=== PATIENT | female | born 1980 | race Caucasian/White ===

== ENCOUNTER → 2020-07-11 14:20 | Outpatient (BNVA) | payer OTHER, SELFPAY | PROVIDERS: PCP Physician Assistant; Referring Provider Hospitalist; Visit Provider Surgery | DX: K64.5 Perianal venous thrombosis (principal) | CPT/HCPCS: 46083 ==

== ENCOUNTER 2020-12-07 10:05 | Outpatient (REF) | payer OTHER, SELFPAY ==
--- NOTE | ~2020-12-07 | XR_ITS ---
EXAMINATION: XR FOOT, RIGHT CLINICAL INFORMATION: Pain right toes. COMPARISON: None TECHNIQUE: AP, lateral, and oblique views of the right foot. 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 Suspect hairline fracture lateral base fifth toe middle phalanx. There is subtle depression central head proximal phalanx. Recommend correlation with patient's symptoms and clinical exam to confirm acute injury in this area rather than chronic post traumatic changes. The remainder of the bony structures appear intact. There are no other areas suspicious for fracture and no dislocation or destructive process. XR/XR foot RT min 3V IMPRESSION: Subtle posttraumatic changes fifth toe middle phalanx and head proximal phalanx. Recommend correlation with clinical impression to confirm acute injury.
== END 2020-12-07 10:06 | disposition home or self-care (01) ==
LOC: HO.XRAY 10:05
PROVIDERS: PCP Physician Assistant; Visit Provider Hospitalist
DX: M79.674 Pain in right toe(s) (principal)
CPT/HCPCS: 73630

== ENCOUNTER → 2021-02-07 08:26 | Outpatient (BNVA) | payer OTHER, SELFPAY | PROVIDERS: PCP Physician Assistant; Referring Provider Physician Assistant; Visit Provider Nurse Practitioner Family ==

== ENCOUNTER 2021-03-20 10:29 | Outpatient (REF) | payer OTHER, SELFPAY ==
[2021-03-20 12:42] LABS: Hematocrit 35.4 % (37-47); Hemoglobin 11.8 g/dl (12.0-16.0); Mean Corpuscular HGB Conc 33.3 g/dl (31.0-35.0); Mean Corpuscular Hemoglobin 29.4 pg (27.0-33.0); Mean Corpuscular Volume 88.3 fL (80-98); Platelet Count 244 X10*3/uL (160-400); Red Blood Count 4.01 X10*6/uL (4.20-5.50); Red Cell Distribution Width 12.5 % (11.0-16.0); White Blood Count 4.3 X10*3/uL (4.8-10.8)
[2021-03-20 12:52] LABS: Estimated Average Glucose 94 mg/dL; Hemoglobin A1c % 4.9 %
[2021-03-20 13:08] LABS: Alanine Aminotransferase 12 U/L (0-31); Albumin Level 4.2 g/dL (3.5-5.0); Alkaline Phosphatase 54 U/L (39-117); Anion Gap 13 (12-20); Aspartate Amino Transferase 15 U/L (5-31); Bilirubin Total 0.8 mg/dL (0.0-1.0); Blood Urea Nitrogen 8 mg/dL (9-16); Calcium 9.2 mg/dL (8.4-10.2); Carbon Dioxide 26 mmol/L (22-29); Chloride 105 mmol/L (96-108); Cholesterol 197 mg/dL; Estimated Glomerular Filt Rate > 60; Glucose Fasting 81 mg/dL (60-99); HDL Cholesterol 53 mg/dL; LDL Cholesterol Calculated 134 mg/dl; Potassium 3.6 mmol/L (3.3-5.1); Sodium 140 mmol/L (135-145); Total Protein 6.9 g/dL (6.5-8.0); Triglycerides 51 mg/dL
[2021-03-20 13:16] LABS: TSH reflex Free T4 0.44 uIU/mL (0.32-4.0)
== END 2021-03-20 10:30 | disposition home or self-care (01) ==
LOC: HO.10HDL 10:29
PROVIDERS: Visit Provider Physician Assistant
DX: I10 Essential (primary) hypertension (principal); I83.90 Asymptomatic varicose veins of unspecified lower extremity; Z13.220 Encounter for screening for lipoid disorders; Z13.1 Encounter for screening for diabetes mellitus
CPT/HCPCS: 36415; 80053; 80061; 83036; 84443; 85027

== ENCOUNTER → 2021-03-26 11:12 | Outpatient (BNVA) | payer OTHER, SELFPAY | PROVIDERS: Referring Provider Physician Assistant; Visit Provider Nurse Practitioner Family | DX: K58.9 Irritable bowel syndrome, unspecified (principal); K59.04 Chronic idiopathic constipation | CPT/HCPCS: 99212 ==

== ENCOUNTER → 2021-05-11 11:18 | Outpatient (BNVA) | payer OTHER, SELFPAY | PROVIDERS: PCP Physician Assistant; Visit Provider Nurse Practitioner Family | DX: K59.04 Chronic idiopathic constipation (principal); K58.1 Irritable bowel syndrome with constipation | CPT/HCPCS: 99212 ==

== ENCOUNTER 2021-05-11 12:15 | Outpatient (REF) | payer OTHER, SELFPAY ==
[2021-05-14 16:36] LABS: Transglutaminase Ab IgG 1 U/mL; Transglutaminase IgA 1 U/mL
== END 2021-05-11 12:16 | disposition home or self-care (01) ==
LOC: HO.10HDL 12:15
PROVIDERS: Visit Provider Nurse Practitioner Family
DX: R10.11 Right upper quadrant pain (principal); R14.0 Abdominal distension (gaseous)
CPT/HCPCS: 36415; 83516

== ENCOUNTER → 2021-05-15 11:29 | Outpatient (BNVA) | payer OTHER, SELFPAY | PROVIDERS: PCP Physician Assistant; Visit Provider Surgery Vascular Surgery | DX: I83.12 Varicose veins of left lower extremity with inflammation (principal) | CPT/HCPCS: 99202 ==

== ENCOUNTER 2021-05-31 10:27 | Outpatient (REF) | payer OTHER, SELFPAY ==
--- NOTE | ~2021-05-31 | US_ITS ---
EXAMINATION: US LOWER EXTREMITY VENOUS ULTRASOUND (REFLUX EXAM), BILATERAL CLINICAL INDICATION: Bilateral lower extremity varicose veins with insufficiency. COMPARISON: None. TECHNIQUE: Color-flow triplex imaging and compression Doppler was performed to evaluate both the deep and the superficial systems bilaterally. To evaluate the superficial system, the examination was performed in the upright position. Color-flow Doppler ultrasound and compression ultrasound were utilized. In addition, maneuvers were utilized to demonstrate reflux. FINDINGS: 1. DEEP VENOUS ULTRASOUND OF THE RIGHT LOWER EXTREMITY: Common Femoral Vein: Compressible, normal respiratory variation and augmented flow. Femoral Vein: Compressible, normal color-flow and augmentation. Popliteal Vein: Compressible, normal augmentation. Deep Reflux: There is insufficiency involving the mid femoral vein and popliteal vein measuring up to 2.8 seconds. There is no evidence of a Barrios's cyst. 2. SUPERFICIAL ULTRASOUND WITH DOPPLER OF RIGHT LOWER EXTREMITY: GREAT SAPHENOUS VEIN: The saphenous vein ranges in size from 0.3 cm at the ankle to 0.7 cm at the junction. There is segmental reflux at the ankle which measures greater than 3.4 seconds. DUPLICATED GREAT SAPHENOUS VEIN: Lateral: 0.5 cm at the junction, no reflux. SMALL SAPHENOUS VEIN: Saphenopopliteal junction: 0.7 cm; No evidence of reflux. Mid calf: 0.7 cm; greater than 3.3 seconds of reflux. Distal calf: 0.3 cm; greater than 3.5 seconds of reflux. VEIN OF GIACOMINI: None imaged. PERFORATORS: None imaged. VARICOSITIES: Midcalf: 0.2 cm, greater than 3 seconds of reflux. 3. DEEP VENOUS ULTRASOUND OF THE LEFT LOWER EXTREMITY: Common Femoral Vein: Compressible, normal respiratory variation and augmented flow. Femoral Vein: Compressible, normal color-flow and augmentation. Popliteal Vein: Compressible, normal augmentation. Deep Reflux: There is no evidence of reflux in the deep system in either the common femoral vein or the popliteal vein. There is no evidence of a Barrios's cyst. 4. SUPERFICIAL ULTRASOUND WITH DOPPLER OF LEFT LOWER EXTREMITY: GREAT SAPHENOUS VEIN: Saphenofemoral junction: 0.6 cm; Reflux: 2.7 seconds. Proximal thigh: 0.6 cm; Reflux: 3.2 seconds. Mid thigh: 0.5 cm; Reflux: 3.3 seconds. Above knee: 0.5 cm; Reflux: 3.0 seconds. At knee: 0.4 cm; Reflux: 3.4 seconds. Below knee: 0.5 cm; Reflux: 1.9 seconds. Mid calf: 0.2 cm; Reflux: No evidence of reflux. Ankle: 0.3 cm; Reflux: No evidence of reflux. DUPLICATED GREAT SAPHENOUS VEIN: Lateral: 0.4 cm, no reflux. SMALL SAPHENOUS VEIN: Saphenopopliteal junction: 0.6 cm; No evidence of reflux. Mid calf: 0.2 cm; No evidence of reflux. Distal calf: 0.2 cm; No evidence of reflux. VEIN OF GIACOMINI: None imaged. PERFORATORS: None imaged. VARICOSITIES: Distal thigh: 0.4 cm, greater than 3 seconds of reflux. Proximal calf: 0.4 cm, greater than 1.4 seconds of reflux. US/US venous duplex LE BI IMPRESSION: 1. Left great saphenous venous insufficiency beginning at the saphenofemoral junction. 2. Segmental reflux involving the right great saphenous vein at the ankle. 3. Right small saphenous venous insufficiency at the mid and distal calf. 4. Bilateral refluxing varicosities. 5. Deep venous insufficiency involving the right mid femoral vein and popliteal vein. 6. No evidence of DVT.
== END 2021-05-31 10:28 | disposition home or self-care (01) ==
LOC: HO.US 10:27
PROVIDERS: PCP Physician Assistant; Visit Provider Surgery Vascular Surgery
DX: I83.893 Varicose veins of bilateral lower extremities with other complications (principal)
CPT/HCPCS: 93970

== ENCOUNTER → 2021-06-28 09:44 | Outpatient (BNVA) | payer OTHER, SELFPAY | PROVIDERS: PCP Physician Assistant; Visit Provider Surgery Vascular Surgery | DX: I83.12 Varicose veins of left lower extremity with inflammation (principal); F41.9 Anxiety disorder, unspecified; Z88.8 Allergy status to other drugs, medicaments and biological substances; Z91.030 Bee allergy status | CPT/HCPCS: 99212 ==

== ENCOUNTER → 2021-06-29 10:25 | Outpatient (BNVA) | payer OTHER, SELFPAY | PROVIDERS: PCP Physician Assistant; Referring Provider Physician Assistant; Visit Provider Surgery Vascular Surgery | DX: I83.12 Varicose veins of left lower extremity with inflammation (principal) | CPT/HCPCS: 36482 ==

== ENCOUNTER 2021-07-02 14:03 | Outpatient (REF) | payer OTHER, SELFPAY ==
--- NOTE | ~2021-07-02 | US_ITS ---
EXAMINATION: US VENOUS ULTRASOUND WITH DOPPLER LOWER EXTREMITY, LEFT CLINICAL INFORMATION: Pain and swelling status post left Venaseal. COMPARISON: 05/31/2021 TECHNIQUE: Ultrasound of the deep veins is performed from the hip to the calf with compression sonography and color and pulse Doppler assessment. Spectral analysis with color-flow imaging is performed. FINDINGS: There is normal venous compression and respiratory variation and augmented flow. The visualized common femoral vein, superficial femoral vein, profunda femoral vein, popliteal vein, and the trifurcation region shows no evidence of deep venous thrombosis. There is no significant popliteal fossa cyst. Posttreatment changes of the greater saphenous vein with closure approximately 12 cm from the junction with the femoral vein. If the patient's symptoms persist, followup ultrasound in 5 days 7 days might be of value to exclude proximal propagation from a non-visualized calf vein. US/US venous duplex LE IMPRESSION: No DVT demonstrated in the left lower extremity.
== END 2021-07-02 14:04 | disposition home or self-care (01) ==
LOC: HO.HMGCX 14:03
PROVIDERS: PCP Physician Assistant; Visit Provider Surgery Vascular Surgery
DX: M79.605 Pain in left leg (principal)
CPT/HCPCS: 93971

== ENCOUNTER → 2021-07-10 09:31 | Outpatient (BNVA) | payer OTHER, SELFPAY | PROVIDERS: PCP Physician Assistant; Visit Provider Surgery Vascular Surgery | DX: I83.12 Varicose veins of left lower extremity with inflammation (principal) | CPT/HCPCS: 99212 ==

== ENCOUNTER → 2021-08-17 10:57 | Outpatient (BNVA) | payer OTHER, SELFPAY | PROVIDERS: PCP Physician Assistant; Referring Provider Physician Assistant; Visit Provider Nurse Practitioner Family | DX: K59.04 Chronic idiopathic constipation (principal); R14.0 Abdominal distension (gaseous); R10.11 Right upper quadrant pain | CPT/HCPCS: 99212 ==

== ENCOUNTER 2021-08-17 12:19 | Outpatient (REF) | payer OTHER, SELFPAY ==
[2021-08-17 13:54] LABS: Hematocrit 33.5 % (37.0-47.0); Hemoglobin 11.1 g/dl (12.0-16.0); Mean Corpuscular HGB Conc 33.1 g/dl (31.0-35.0); Mean Corpuscular Hemoglobin 28.9 pg (27.0-33.0); Mean Corpuscular Volume 87.2 fL (80.0-98.0); Mean Platelet Volume 10.5 fL (9.4-12.3); Platelet Count 227 X10*3/uL (160-400); Red Blood Count 3.84 X10*6/uL (4.20-5.50); White Blood Count 5.1 X10*3/uL (4.8-10.8)
[2021-08-17 14:16] LABS: Anion Gap 10 (12-20); Blood Urea Nitrogen 9 mg/dL (9-16); Calcium 9.1 mg/dL (8.4-10.2); Carbon Dioxide 27 mmol/L (22-29); Chloride 108 mmol/L (96-108); Estimated Glomerular Filt Rate > 60; Glucose Random 93 mg/dL (60-115); Potassium 3.8 mmol/L (3.3-5.1); Sodium 141 mmol/L (135-145)
[2021-08-17 14:55] LABS: Folate 13.1 ng/mL (> or = 4.0); Vitamin B12 345 pg/mL (200-900)
[2021-08-22 14:15] LABS: Vitamin D 25-OH, D2 <4 ng/mL; Vitamin D 25-OH, D3 27 ng/mL; Vitamin D 25-OH, Total 27 ng/mL (30-100)
== END 2021-08-17 12:20 | disposition home or self-care (01) ==
LOC: HO.10HDL 12:19
PROVIDERS: Visit Provider Nurse Practitioner Family
DX: Z12.11 Encounter for screening for malignant neoplasm of colon (principal); R10.11 Right upper quadrant pain; E55.9 Vitamin D deficiency, unspecified; R14.0 Abdominal distension (gaseous); R19.7 Diarrhea, unspecified
CPT/HCPCS: 36415; 80048; 82306; 82607; 82746; 84443; 85027

== ENCOUNTER 2021-08-22 08:40 | Outpatient (REF) | payer OTHER, SELFPAY ==
--- NOTE | ~2021-08-22 | US_ITS ---
EXAMINATION: US ABDOMEN LIMITED CLINICAL INFORMATION: Right upper quadrant pain. COMPARISON: Ultrasound abdomen 12/16/2016. TECHNIQUE: Real-time imaging of the right upper quadrant abdominal viscera. FINDINGS: PANCREAS: Normal. LIVER: The liver is normal in size. The liver contour is normal. The liver echotexture is normal.. No focal hepatic lesion. There is no intrahepatic biliary duct dilatation seen. GALLBLADDER: Normal. The gallbladder is physiologically distended without evidence of stones, sludge, polyps, wall thickening or pericholecystic fluid. COMMON BILE DUCT: Normal in caliber measuring 0.2 cm in diameter. RIGHT KIDNEY: There is a 5 mm echogenic density in the lower pole suggestive of a stone. No hydronephrosis or focal parenchymal lesions. The kidney measures 11.1 cm in maximum dimension. FREE FLUID: None. US/US abdomen limited IMPRESSION: Probable right renal stone. Otherwise unremarkable exam.
== END 2021-08-22 08:41 | disposition home or self-care (01) ==
LOC: HO.US 08:40
PROVIDERS: PCP Physician Assistant; Visit Provider Physician Assistant
DX: R10.11 Right upper quadrant pain (principal)
CPT/HCPCS: 76705

== ENCOUNTER 2021-09-14 10:25 | Outpatient (REF) | payer OTHER, SELFPAY ==
--- NOTE | ~2021-09-14 | CT_ITS ---
EXAMINATION: CT ABDOMEN AND PELVIS WITH CONTRAST CLINICAL INFORMATION: Unspecified abdominal pain. COMPARISON: None TECHNIQUE: Multidetector volumetric images were obtained from the superior aspect of the liver through the pubic symphysis following administration 85 mL of Omnipaque 350 intravenous contrast. Sagittal and coronal reformatted images were obtained on the technologist's workstation. Oral contrast: No This CT examination was performed using dose optimization techniques as appropriate, variously including the following: *Automated exposure control *Adjustment of mA and/or kV according to patient size (this includes techniques or standardized protocols for targeted exams where dose is matched to indication/reason for exam; i.e. extremities or head) *Use of iterative reconstruction technique DLP: 435 mGy-cm FINDINGS: LUNG BASES: The lungs are well-expanded and clear. The heart size is normal. LIVER, GALLBLADDER, AND BILIARY TREE: The liver is normal in size, shape, and attenuation. There are multiple hypodense liver lesions the largest measuring 7 mm right hepatic lobe segment 7. And 7 mm segment 7/8. There is no intrahepatic ductal dilatation. The gallbladder is unremarkable with no evidence of radiopaque gallstones, gallbladder wall thickening, or obvious pericholecystic inflammatory changes. PANCREAS: Unremarkable. SPLEEN: Unremarkable. ADRENAL GLANDS: Unremarkable. KIDNEYS AND URETERS: The kidneys are normal in size, shape, and attenuation. No hydronephrosis, hydroureter, or calculi seen. No perinephric stranding. There are subtle hypodense lesions in the midpole and lower pole right kidney suspicious for small cysts. BLADDER: Unremarkable. GASTROINTESTINAL TRACT: There is moderate stool and gas seen throughout the colon without any significant distention. Oral contrast opacified small bowel loops are unremarkable. There is no free air or free fluid. ABDOMINAL WALL: No significant hernia is appreciated. LYMPH NODES: Normal. VASCULAR: Unremarkable. PELVIC VISCERA: The uterus is anteverted and unremarkable. There is a bilobed right adnexal cyst measuring 2.7 x 1.7 cm. There are scattered phleboliths in the pelvis. No abnormal pelvic or inguinal lymph nodes seen. OSSEOUS STRUCTURES: Unremarkable. CT/CT abdomen pelvis w con IMPRESSION: Moderate constipation. No acute process seen. Multiple small liver hypodensities question small cysts. Bilobed right adnexal cyst. Fleischner guidelines were followed.
[2021-09-14] MEDS: iohexoL 350 MG/ML 100 ML INFUS..BTL 85 ML IV (13:26)
[2021-09-14] MEDS: Barium Sulfate Oral (Mocha) 450 ML ORAL.SUSP 900 ML PO (13:27)
== END 2021-09-14 10:26 | disposition home or self-care (01) ==
LOC: HO.CT 10:25
PROVIDERS: PCP Physician Assistant; Visit Provider Nurse Practitioner Family
DX: R10.9 Unspecified abdominal pain (principal)
CPT/HCPCS: 74177; Q9967

== ENCOUNTER → 2021-09-26 10:28 | Outpatient (BNVA) | payer OTHER, SELFPAY | PROVIDERS: PCP Physician Assistant; Referring Provider Physician Assistant; Visit Provider Nurse Practitioner Family | DX: K59.04 Chronic idiopathic constipation (principal); R10.11 Right upper quadrant pain | CPT/HCPCS: 99212 ==

== ENCOUNTER 2021-10-18 08:53 | Outpatient (REF) | payer OTHER, SELFPAY ==
--- NOTE | ~2021-10-18 | MR_ITS ---
EXAMINATION: MR ABDOMEN WITHOUT AND WITH CONTRAST CLINICAL INFORMATION: Right upper quadrant pain. Multiple hypodense liver lesion seen on prior abdomen CT. COMPARISON: CT abdomen from 09/14/2021. Abdomen ultrasound from 08/22/2021. TECHNIQUE: MR abdomen was performed without and with use of 7.5 mL intravenous Gadavist. Postcontrast images are performed in multiphase dynamic sequences. Imaging was performed in 3 planes. FINDINGS: LUNG BASES: Normal. No pulmonary consolidation or pleural effusion at either lung base. LIVER: Liver has normal size, contour and parenchymal signal. No cirrhotic morphology or steatosis. Several small cysts are present within the liver, with two largest measuring up to 1 cm and 1.1 cm maximum dimension and exhibiting faintly visible thin internal septation. There are no suspicious liver lesions that require follow-up. No evidence of hepatic hemangioma or solid mass. GALLBLADDER AND BILIARY TREE: Gallbladder has normal wall thickness. No evidence of cholelithiasis or pericholecystic fluid. No dilated bile ducts. PANCREAS: Normal. No edema, pancreatic ductal dilatation or mass. SPLEEN: Normal. ADRENAL GLANDS: Normal. KIDNEYS: Kidneys are normal in size and enhance symmetrically. Small, 0.8 cm simple cyst in the interpolar region right kidney. No imaging follow-up recommended. No solid renal mass, hydronephrosis or perinephric edema. BOWEL AND PERITONEUM: Stomach is unremarkable. No dilated loops of bowel. No bowel wall thickening or mesenteric fat stranding. No ascites. VASCULATURE: Abdominal aorta is normal in size and its branches are widely patent. Inferior vena cava is normal. Splenic, mesenteric and portal veins are normal. LYMPH NODES: No pathologic sized lymph nodes in the abdomen. SKELETAL: Unremarkable. MR/MR abdomen wo/w con IMPRESSION: Several small, benign cysts are present in the liver, largest measuring up to 1.1 cm maximum dimension. No suspicious liver lesion. Otherwise, the hepatobiliary structures are unremarkable.
== END 2021-10-18 08:54 | disposition home or self-care (01) ==
LOC: HO.MRI 08:53
PROVIDERS: Visit Provider Nurse Practitioner Family
DX: R10.11 Right upper quadrant pain (principal)
CPT/HCPCS: 74183; A9585

== ENCOUNTER → 2022-02-19 15:50 | Outpatient (BNVA) | payer OTHER, SELFPAY | PROVIDERS: PCP Physician Assistant; Visit Provider Nurse Practitioner Family | DX: K58.1 Irritable bowel syndrome with constipation (principal); K59.04 Chronic idiopathic constipation; K64.9 Unspecified hemorrhoids | CPT/HCPCS: 99212 ==

== ENCOUNTER 2022-03-13 11:01 | Outpatient (REF) | payer OTHER, SELFPAY ==
--- NOTE | ~2022-03-13 | XR_ITS ---
EXAMINATION: XR SHOULDER, LEFT CLINICAL INFORMATION: Muscle spasm COMPARISON: None TECHNIQUE: AP external rotation, Grashey, scapular Y, and axillary views of the left shoulder. FINDINGS: The bones and soft tissues are normal. No fracture. Glenohumeral and acromioclavicular alignment is anatomic with normal joint space. No abnormal soft tissue calcifications. XR/XR shoulder LT min 2V IMPRESSION: Normal left shoulder.
== END 2022-03-13 11:02 | disposition home or self-care (01) ==
LOC: HO.HMGCX 11:01
PROVIDERS: PCP Physician Assistant; Visit Provider Physician Assistant
DX: M62.838 Other muscle spasm (principal)
CPT/HCPCS: 73030

== ENCOUNTER → 2022-03-19 10:37 | Outpatient (BNVA) | payer OTHER, SELFPAY | PROVIDERS: PCP Physician Assistant; Visit Provider Surgery Vascular Surgery | DX: I83.12 Varicose veins of left lower extremity with inflammation (principal) | CPT/HCPCS: 99212 ==

== ENCOUNTER 2022-05-22 10:03 | Outpatient (REF) | payer OTHER, SELFPAY ==
--- NOTE | ~2022-05-22 | US_ITS ---
EXAMINATION: US LOWER EXTREMITY VENOUS (REFLUX EXAM), BILATERAL CLINICAL INDICATION: Chronic venous insufficiency with lower extremity varicose veins. History of prior ablation of the left great saphenous vein COMPARISON: 05/31/2021 TECHNIQUE: Color flow triplex imaging and compression Doppler was performed to evaluate both the deep and the superficial systems bilaterally. To evaluate the superficial system, the examination was performed in the upright position. Color-flow Doppler ultrasound and compression ultrasound were utilized. In addition, maneuvers were utilized to demonstrate reflux. FINDINGS: 1. DEEP VENOUS ULTRASOUND OF THE RIGHT LOWER EXTREMITY: Common Femoral Vein: Compressible, normal respiratory variation and augmented flow. Femoral Vein: Compressible, normal color flow and augmentation. Popliteal Vein: Compressible, normal augmentation. Deep Reflux: There is mild deep venous reflux in the superficial femoral vein and popliteal vein There is no evidence of a Barrios's cyst. 2. SUPERFICIAL ULTRASOUND WITH DOPPLER OF RIGHT LOWER EXTREMITY: GREAT SAPHENOUS VEIN: Saphenofemoral Junction: 0.7 cm; Reflux: 0 ms Proximal Thigh: 0.3 cm; Reflux: 0 ms Mid Thigh: 0.3 cm; Reflux: 0 ms Above Knee: 0.3 cm; Reflux: 0 ms At Knee: 0.3 cm; Reflux: 0 ms Below Knee: 0.3 cm; Reflux: 0 ms Mid Calf: 0.2 cm; Reflux: 0 ms Ankle: 0.3 cm; Reflux: 0 ms DUPLICATED MEDIAL GREAT SAPHENOUS VEIN: Diameter: 0.5 cm Reflux: None DUPLICATED LATERAL GREAT SAPHENOUS VEIN: Diameter: None Imaged Reflux: NA SMALL SAPHENOUS VEIN: Proximal: 0.5 cm; Reflux: 0 ms Distal: 0.5 cm; Reflux: 2976 ms VEIN OF GIACOMINI: None Imaged. PERFORATORS: Location: None Imaged Size: NA Reflux: NA VARICOSITIES: Location: None Imaged Size: NA Reflux: NA 3. DEEP VENOUS ULTRASOUND OF THE LEFT LOWER EXTREMITY: Common Femoral Vein: Compressible, normal respiratory variation and augmented flow. Femoral Vein: Compressible, normal color flow and augmentation. Popliteal Vein: Compressible, normal augmentation. Deep Reflux: There is mild reflux seen in the left popliteal vein There is no evidence of a Barrios's cyst. 4. SUPERFICIAL ULTRASOUND WITH DOPPLER OF LEFT LOWER EXTREMITY: GREAT SAPHENOUS VEIN: Saphenofemoral Junction: 1.1 cm; Reflux: 0 ms Proximal Thigh: 0.3 cm; Reflux: 2496 ms, partially recanalized Mid Thigh: Occluded/not visualized cm; Reflux: 0 ms Above Knee: 0.3 cm; Reflux: 0 ms At Knee: 0.4 cm; Reflux: 3080 ms Below Knee: 0.4 cm; Reflux: 2200 ms Mid Calf: 0.2 cm; Reflux: 0 ms Ankle: 0.3 cm; Reflux: 0 ms DUPLICATED MEDIAL GREAT SAPHENOUS VEIN: Diameter: None Imaged Reflux: NA DUPLICATED LATERAL GREAT SAPHENOUS VEIN: Diameter: None Imaged Reflux: NA SMALL SAPHENOUS VEIN: Proximal: 0.8 cm; Reflux: 0 ms Distal: 0.3 cm; Reflux: 2560 ms VEIN OF GIACOMINI: None Imaged. PERFORATORS: Location: Distal calf Size: 0.3 cm Reflux: None VARICOSITIES: Location: Proximal thigh arising from the great saphenous vein remnant which is subsequently extending into the above knee great saphenous vein Size: 0.3 cm Reflux: Greater than 3192 US/US venous duplex LE BI IMPRESSION: Right: No significant reflux in the right great saphenous vein. There is severe reflux in the right small saphenous vein. Mild deep venous reflux in the right lower extremity Left: Status post ablation with closure of the left great saphenous vein through the mid thigh. There is partial recanalization of the proximal thigh great saphenous vein with associated varicose vein with severe reflux. Remnant great saphenous vein in the knee and calf also demonstrate severe reflux. Focal reflux in the left small saphenous vein in the distal calf
== END 2022-05-22 10:04 | disposition home or self-care (01) ==
LOC: HO.US 10:03
PROVIDERS: Visit Provider Surgery Vascular Surgery
DX: I83.12 Varicose veins of left lower extremity with inflammation (principal)
CPT/HCPCS: 93970

== ENCOUNTER → 2022-07-04 10:05 | Outpatient (BNVA) | payer OTHER, SELFPAY | PROVIDERS: PCP Physician Assistant; Visit Provider Surgery Vascular Surgery | DX: I83.11 Varicose veins of right lower extremity with inflammation (principal); I83.12 Varicose veins of left lower extremity with inflammation | CPT/HCPCS: 99212 ==

== ENCOUNTER → 2022-08-02 08:24 | Outpatient (BNVA) | payer OTHER, SELFPAY | PROVIDERS: PCP Physician Assistant; Visit Provider Surgery Vascular Surgery | DX: M79.604 Pain in right leg (principal) | CPT/HCPCS: 36475 ==

== ENCOUNTER 2022-08-06 15:08 | Outpatient (REF) | payer OTHER, SELFPAY ==
--- NOTE | ~2022-08-06 | US_ITS ---
EXAMINATION: US VENOUS ULTRASOUND WITH DOPPLER LOWER EXTREMITY, RIGHT CLINICAL INFORMATION: Right leg pain. COMPARISON: None TECHNIQUE: Ultrasound of the deep veins is performed from the hip to the calf with compression sonography and color and pulse Doppler assessment. Spectral analysis with color-flow imaging is performed. FINDINGS: There is normal venous compression and respiratory variation and augmented flow. The visualized common femoral vein, superficial femoral vein, profunda femoral vein, popliteal vein, and the trifurcation region shows no evidence of deep venous thrombosis. Positive superficial thrombus is seen in the small saphenous vein mid and distal segments. No right popliteal cyst. The subcutaneous soft tissues are unremarkable. US/US venous duplex LE RT IMPRESSION: No evidence for deep venous thrombosis in the visualized veins of the right lower extremity. Positive superficial thrombus is seen in the small saphenous vein mid and distal segments.
== END 2022-08-06 15:09 | disposition home or self-care (01) ==
LOC: HO.US 15:08
PROVIDERS: Visit Provider Surgery Vascular Surgery
DX: M79.604 Pain in right leg (principal)
CPT/HCPCS: 93971

== ENCOUNTER → 2022-08-12 11:25 | Outpatient (BNVA) | payer OTHER, SELFPAY | PROVIDERS: PCP Physician Assistant; Visit Provider Nurse Practitioner Family | DX: K59.04 Chronic idiopathic constipation (principal); R10.10 Upper abdominal pain, unspecified; R11.0 Nausea | CPT/HCPCS: 99212 ==

== ENCOUNTER → 2022-09-05 08:59 | Outpatient (BNVA) | payer OTHER, SELFPAY | PROVIDERS: PCP Physician Assistant; Visit Provider Surgery Vascular Surgery | DX: I83.12 Varicose veins of left lower extremity with inflammation (principal) | CPT/HCPCS: 99212 ==

== ENCOUNTER → 2023-01-10 11:03 | Outpatient (BNVA) | payer OTHER, SELFPAY | PROVIDERS: PCP Physician Assistant; Visit Provider Nurse Practitioner Family | DX: K59.04 Chronic idiopathic constipation (principal); R14.0 Abdominal distension (gaseous) | CPT/HCPCS: 99212 ==

== ENCOUNTER 2023-04-15 14:40 | Outpatient (AMB) | payer OTHER, SELFPAY ==
--- NOTE | 2023-04-15 15:45 | MHC.OFFWIV ---
Intake Vital Signs 04/15/23 15:46 Weight 170 lb BP 124/80 Blood Pressure Location Rt brachial Position Sitting Pulse 60 Pulse Source Pulse Oximeter Pulse Oximetry (%) 99 Oxygen Delivery Method Room Air Intake Visit Reasons: EP ?broken left middle finger (lobby) Intake Note: Patient here because she injured her middle finger while playing basketball yesterday. Finger is bruised and pain will radiate up to the elbow. Patient Tobacco Use Status: Never used Tobacco Allergies hydroxyzine [HYDROXYZINE] Allergy (Unknown, Verified 04/15/23 16:00) HIVES trazodone Adverse Reaction (Intermediate, Verified 04/15/23 16:00) Hallucinations bees Allergy (Unknown, Uncoded 04/15/23 16:00) cellulitis of large surrounding area Medication List - Last Reconciled 04/15/23 by Shiv Jara MD cholecalciferol (vitamin D3) 50 mcg PO DAILY clonazepam 2 mg (2 x 1 mg) PO DAILY PRN 15 days clonazepam 2 mg PO DAILY PRN 30 days docusate sodium 200 mg (2 x 100 mg) PO BEDTIME linaclotide (Linzess) 290 mcg PO QAM quetiapine 25 mg PO BEDTIME sennosides (Natural Senna Laxative) 17.2 mg (2 x 8.6 mg) PO BEDTIME topiramate (Topamax) 50 mg PO BEDTIME 90 days Do you need a note to return to daycare/school/sports/work: No HPI EP ?broken left middle finger (lobby) HPI Details 42-year-old female presents to the office for a sick visit. Patient was playing basketball yesterday when she jammed her finger. The middle finger of the left hand is swollen. [facility] Medical History Anxiety Chronic idiopathic constipation Insomnia Surgical History History of section History of tubal ligation History of wisdom tooth extraction Family History Father No problems noted. Mother No problems noted. Daughter Mental health disorder Son Mental health disorder Social History Housing: House Alcohol intake: current Alcohol intake frequency: holidays/special occasions only Patient Tobacco Use Status: Never used Tobacco e-Cigarette/Vaping Use: Never Used Second Hand Smoke Exposure: No service: No Current occupational status: employed Current occupation: [employer] Cognitive needs: No Hearing needs: No Vision needs: No Physical Exam Vital Signs: Last Vital Signs Pulse 60 04/15/23 15:46 BP 124/80 04/15/23 15:46 Pulse Ox 99 04/15/23 15:46 Oxygen Delivery Method Room Air 04/15/23 15:46 Extrem Other: Left hand: Middle finger: Swollen and bruised. Partial flexion possible. Tender to palpate over the proximal interphalangeal joint. Assessment & Plan Assessment & Plan (1) Contusion of finger of left hand: Code(s): S60.00XA - Contusion of unspecified finger without damage to nail, initial encounter Plan: X-rays of the hand ordered. It was reviewed by me personally. No fractures seen. Anti-inflammatory ordered. Orders: Orders XR hand LT min 3V Today S60.00XA - Contusion of unspecified finger without damage to nail, initial encounter Coding Level of Care Code Est Pt Level 4 (67499) Diagnoses Contusion of finger of left hand S60.00XA
[2023-04-15 15:46] VITALS: BP 124/80; PULSE 60; O2SAT 99
== END 2023-04-15 16:27 | disposition home or self-care (01) ==
PROVIDERS: PCP Physician Assistant; Visit Provider Internal Medicine
DX: S60.00XA Contusion of unspecified finger without damage to nail, initial encounter (principal)
CPT/HCPCS: 99214

== ENCOUNTER 2023-04-15 15:59 | Outpatient (REF) | payer OTHER, SELFPAY ==
--- NOTE | ~2023-04-15 | XR_ITS ---
EXAMINATION: XR HAND, LEFT CLINICAL INFORMATION: Contusion/finger contusion COMPARISON: None available. TECHNIQUE: PA, lateral, and oblique views of the left hand. FINDINGS: Arrow points to the third digit. No fracture or dislocation. No significant joint space narrowings or erosions. Third DIP soft tissues are mildly prominent. No abnormal air collections or foreign bodies. XR/XR hand LT min 3V IMPRESSION: Third digit soft tissue prominence without acute bony pathology.
== END 2023-04-15 16:00 | disposition home or self-care (01) ==
LOC: HO.HMGCX 15:59
PROVIDERS: PCP Physician Assistant; Visit Provider Internal Medicine
DX: S60.00XA Contusion of unspecified finger without damage to nail, initial encounter (principal)
CPT/HCPCS: 73130

== ENCOUNTER 2023-08-07 15:03 | Outpatient (AMB) | payer OTHER, SELFPAY ==
[2023-08-07 15:06] VITALS: BMI 30.1
--- NOTE | 2023-08-07 15:06 | MHC.OFFVIS ---
Intake Vital Signs 08/07/23 15:06 Height 5 ft 3 in Weight 170 lb BMI 30.1 Intake Visit Reasons: Left leg has been bothering me Intake Note: Follow up Left LE pain s/p Left GSV Venaseal 06/29/2021 and Right SSV RFA 08/02/2022. Was ue to be scheduled for Left SSV RFA last year. Has US that was done 05/22/22. Also has bulging VV where incision for Left GSV Venaseal was done. Accompanied by: Self / Same As Patient Allergies hydroxyzine [HYDROXYZINE] Allergy (Unknown, Verified 08/07/23 15:10) HIVES trazodone Adverse Reaction (Intermediate, Verified 08/07/23 15:10) Hallucinations bees Allergy (Unknown, Uncoded 08/07/23 15:10) cellulitis of large surrounding area HPI Left leg has been bothering me HPI Details Pleasant 42-year-old female presents for follow-up regarding venous disease. She had undergone previous right lower extremity intervention by us. She has continued swelling and discomfort of the left leg. She actually underwent left great saphenous vein ablation on 06/29/2021. She continues to have swelling and discomfort in particular the calf region. He now presents to us for follow-up with venous insufficiency testing dated 05/22/2022 [facility] Medical History Chronic idiopathic constipation Anxiety Insomnia Surgical History History of section History of wisdom tooth extraction History of tubal ligation Family History Father No problems noted. Mother No problems noted. Daughter Mental health disorder Son Mental health disorder Social History Housing: House Alcohol intake: current Alcohol intake frequency: holidays/special occasions only Patient Tobacco Use Status: Never used Tobacco e-Cigarette/Vaping Use: Never Used Second Hand Smoke Exposure: No service: No Current occupational status: employed Current occupation: [employer] Cognitive needs: No Hearing needs: No Vision needs: No Review of Systems Const Reports as per HPI ENT Reports no additional complaints Card Denies chest pain, Denies chest pain at rest and Denies chest pain with activity Resp Denies chest congestion and Denies cough GI Reports no additional complaints Musc Details: pain over varicosities, aching of lower extremities, swelling, cramping, heaviness and tiredness, itching Denies abnormal gait Skin/Breast Reports pruritus and Denies wounds Neuro Reports no additional complaints and Denies abnormal gait Psych Denies no additional complaints Physical Exam Vital Signs: BMI result Body Mass Index 30.1 Const General: cooperative, healthy appearing and comfortable Orientation/consciousness: oriented to person, oriented to place and oriented to time Neck Carotids: no bruits Chest Chest palpation & inspection: normal inspection of the chest and normal palpation of entire chest wall Resp Effort & Inspection: normal respiratory effort and able to speak in complete sentences Cardio Rate: regular rate Heart sounds: S1 normal heart sound present and S2 normal heart sound present Peripheral pulses: Peripheral pulses 2+ throughout GI Inspection: Yes normal to inspection Skin Other: +2 edema, CEAP Classification C4 - skin color changes Ep - Etiology Primary As - superficial veins P - reflux General skin exam: dry skin Neuro General: oriented to person, oriented to place and oriented to time Extrem Right lower extremity: full ROM, normal capillary refill and edema Left lower extremity: full ROM, normal capillary refill and edema Psych Mental Status: mental status grossly normal Results Reviewed Results Reviewed: Brief summary of venous insufficiency testing is as follows: right great saphenous vein: negative right small saphenous vein: Ablated right accessory vein: none present left great saphenous vein: Ablated left small saphenous vein: Positive left accessory vein: none present Please note there is no evidence of any venous aneurysms or significant tortuosity Assessment & Plan Assessment & Plan (1) Varicose veins of left lower extremity with inflammation: Comment: 06/29/2021 left great saphenous vein Cyanoacralate ablation Code(s): I83.12 - Varicose veins of left lower extremity with inflammation Plan: This patient has varicose veins with inflammation. They continue to be a source of discomfort for the patient. The patient has tried conservative treatment with compression, leg elevation and exercise program for over 3 months time. They have been compliant with all treatment. This has provided minimal relief for the patient. I do not anticipate this course of treatment will alter the underlying etiology. The patient has been scheduled for lower extremity venous treatment inclusive of --- left small saphenous vein radiofrequency ablation. Risks, benefits, and complications of this procedure has been discussed in detail with the patient including but not limited to bleeding, infection, and the development of a DVT. The patient has demonstrated a clear understanding and has consented. We will schedule the patient as soon as possible. Thank you for allowing us to participate in this patient's care. If there are any questions or concerns please do not hesitate to contact us. (2) Varicose veins of right lower extremity with inflammation: Comment: 08/02/2022 - right small saphenous vein radiofrequency ablation Code(s): I83.11 - Varicose veins of right lower extremity with inflammation Plan: Continue care Coding Level of Care Code Est Pt Level 4 (82764) Diagnoses Varicose veins of left lower extremity with inflammation I83.12 Varicose veins of right lower extremity with inflammation I83.11
== END 2023-08-07 15:36 | disposition home or self-care (01) ==
PROVIDERS: PCP Physician Assistant; Visit Provider Surgery Vascular Surgery
DX: I83.12 Varicose veins of left lower extremity with inflammation (principal); I83.11 Varicose veins of right lower extremity with inflammation
CPT/HCPCS: 99214

== ENCOUNTER → 2023-08-07 15:03 | Outpatient (BNVA) | payer OTHER, SELFPAY | PROVIDERS: PCP Physician Assistant; Visit Provider Surgery Vascular Surgery | DX: I83.12 Varicose veins of left lower extremity with inflammation (principal); I83.11 Varicose veins of right lower extremity with inflammation | CPT/HCPCS: 99212 ==

== ENCOUNTER → 2023-10-17 11:00 | Outpatient (BNVA) | payer OTHER, SELFPAY | PROVIDERS: PCP Physician Assistant; Visit Provider Surgery Vascular Surgery | DX: I83.12 Varicose veins of left lower extremity with inflammation (principal) | CPT/HCPCS: 36475 ==

== ENCOUNTER 2023-10-20 09:55 | Outpatient (REF) | payer OTHER, SELFPAY ==
--- NOTE | ~2023-10-20 | US_ITS ---
EXAMINATION: US VENOUS ULTRASOUND WITH DOPPLER LOWER EXTREMITY, LEFT CLINICAL INFORMATION: Pain in left leg. Evaluate for DVT left lower extremity after left small saphenous vein RFA 10/18/22. COMPARISON: Venous insufficiency ultrasound 05/22/2022. TECHNIQUE: Ultrasound of the deep veins is performed from the hip to the calf with compression sonography and color and pulse Doppler assessment. Spectral analysis with color-flow imaging is performed. FINDINGS: There is normal venous compression and respiratory variation and augmented flow. The visualized common femoral vein, superficial femoral vein, profunda femoral vein, popliteal vein, and the trifurcation region shows no evidence of deep venous thrombosis. Postablation changes are seen in the small saphenous vein up to 3.6 cm from the SPJ. US/US venous duplex LE IMPRESSION: No DVT demonstrated in the left lower extremity. Postablation changes small saphenous vein as above.
== END 2023-10-20 09:56 | disposition home or self-care (01) ==
LOC: HO.US 09:55
PROVIDERS: PCP Physician Assistant; Visit Provider Surgery Vascular Surgery
DX: M79.605 Pain in left leg (principal)
CPT/HCPCS: 93971

== ENCOUNTER 2023-10-30 15:02 | Outpatient (AMB) | payer OTHER, SELFPAY ==
--- NOTE | 2023-10-30 15:05 | MHC.OFFVIS ---
Intake Vital Signs 10/30/23 15:06 Height 5 ft 3 in Weight 170 lb BMI 30.1 Intake Visit Reasons: 2 week follow up Left SSV RFA 10/17/23 Intake Note: 2 week follow up Left SSV RFA 10/17/23. Pt states she still has bruised feeling and did have severe bruising after procedure. Accompanied by: Self / Same As Patient Allergies hydroxyzine [HYDROXYZINE] Allergy (Unknown, Verified 10/30/23 15:08) HIVES trazodone Adverse Reaction (Intermediate, Verified 10/30/23 15:08) Hallucinations bees Allergy (Unknown, Uncoded 10/30/23 15:08) cellulitis of large surrounding area HPI 2 week follow up Left SSV RFA 10/17/23 HPI Details Very pleasant 43-year-old female presents for follow-up status post left small saphenous vein radiofrequency ablation. She did complain of some postprocedure bruising but other than that appear to be doing relatively well. She now presents for routine postprocedure follow-up. Of note postprocedure ultrasound was negative for DVT PFSH Medical History Chronic idiopathic constipation Anxiety Insomnia Surgical History History of section History of wisdom tooth extraction History of tubal ligation Family History Father No problems noted. Mother No problems noted. Daughter Mental health disorder Son Mental health disorder Social History Housing: House Alcohol intake: current Alcohol intake frequency: holidays/special occasions only Patient Tobacco Use Status: Never used Tobacco e-Cigarette/Vaping Use: Never Used Second Hand Smoke Exposure: No service: No Current occupational status: employed Current occupation: [employer] Cognitive needs: No Hearing needs: No Vision needs: No Review of Systems Const All systems reviewed & are unremarkable except as noted in HPI and below Reports no additional complaints ENT Reports Normal hearing present Card Denies chest pain, Denies chest pain at rest, Denies chest pain with activity and Denies pedal edema Resp Denies cough GI Denies abdominal pain Musc Denies abnormal gait, Denies muscle cramps and Denies radiating pain into limb Skin/Breast Denies skin ulcer and Denies wounds Neuro Reports Normal hearing present and Denies abnormal gait Psych Reports no additional complaints Physical Exam Vital Signs: BMI result Body Mass Index 30.1 Const General: cooperative, healthy appearing and comfortable Orientation/consciousness: oriented to person, oriented to place and oriented to time HEENT Head: Yes normal to inspection Neck Neck: Yes normal visual inspection Carotids: no bruits Chest Chest palpation & inspection: normal inspection of the chest Resp Effort & Inspection: normal respiratory effort and able to speak in complete sentences Auscultation: clear to auscultation bilaterally, no crackles, no rales, no rhonchi and no wheezes Cardio Rate: regular rate Rhythm: regular rhythm Heart sounds: S1 normal heart sound present and S2 normal heart sound present Bruits: no carotid bruits Peripheral pulses: Peripheral pulses 2+ throughout GI Inspection: Yes normal to inspection Skin Wounds: no wounds Hair: normal Neuro General: oriented to person, oriented to place and oriented to time Cranial nerves: Yes CN's II-XII intact bilaterally and Yes Normal hearing present Cognition (Neuro): normal cognition Motor exam (neuro): 5/5 motor strength present throughout Extrem Other: venous exam: No significant superficial varicosities or spider telangiectasias, minimal edema General: No clubbing, No cyanosis and No edema Psych Appearance: grossly normal Mental Status: mental status grossly normal Speech and movement: Normal speech and movement present Assessment & Plan Assessment & Plan (1) Varicose veins of right lower extremity with inflammation: Comment: 08/02/2022 - right small saphenous vein radiofrequency ablation Code(s): I83.11 - Varicose veins of right lower extremity with inflammation Plan: See below (2) Varicose veins of left lower extremity with inflammation: Comment: 06/29/2021 left great saphenous vein Cyanoacralate ablation 10/17/2023 - left small saphenous vein radiofrequency ablation Code(s): I83.12 - Varicose veins of left lower extremity with inflammation Plan: The patient has done extremely well with all venous treatments. Patient's may often experience postprocedure phlebitic episodes and I have discussed with the patient use of warm compresses and NSAIDS if tolerated for pain discomfort. In addition, I have discussed continued conservative measures including use of compression, leg elevation, and exercise. The patient was also given an information sheet regarding appropriate use of compression stockings and future purchases. Thank you for allowing us to care for your patient with venous disease. (3) Plantar fasciitis, bilateral: Code(s): M72.2 - Plantar fascial fibromatosis Plan: She does complain of plantar foot pain which is relieved by pressure. I do believe she does have an element of plantar fasciitis. Would recommend evaluation and follow-up by Podiatry. Coding Level of Care Code Est Pt Level 3 (09916) Diagnoses Varicose veins of right lower extremity with inflammation I83.11 Varicose veins of left lower extremity with inflammation I83.12 Plantar fasciitis, bilateral M72.2
[2023-10-30 15:06] VITALS: BMI 30.1
== END 2023-10-30 15:21 | disposition home or self-care (01) ==
PROVIDERS: PCP Physician Assistant; Visit Provider Surgery Vascular Surgery
DX: I83.11 Varicose veins of right lower extremity with inflammation (principal); I83.12 Varicose veins of left lower extremity with inflammation; M72.2 Plantar fascial fibromatosis
CPT/HCPCS: 99213

== ENCOUNTER → 2023-10-30 15:02 | Outpatient (BNVA) | payer OTHER, SELFPAY | PROVIDERS: PCP Physician Assistant; Visit Provider Surgery Vascular Surgery | DX: I83.11 Varicose veins of right lower extremity with inflammation (principal); I83.12 Varicose veins of left lower extremity with inflammation; M72.2 Plantar fascial fibromatosis | CPT/HCPCS: 99212 ==

== ENCOUNTER 2023-10-30 15:23 | Outpatient (AMB) | payer OTHER, SELFPAY ==
[2023-10-30 15:34] VITALS: BP 110/68; PULSE 70; O2SAT 99; BMI 32.0
--- NOTE | 2023-10-30 15:34 | MHC.PC.OV ---
Vital Signs 10/30/23 15:34 Height 5 ft 3 in Weight 180 lb 8 oz BMI 32.0 BP 110/68 Blood Pressure Location Lt brachial Position Sitting Pulse 70 Pulse Source Pulse Oximeter Pulse Oximetry (%) 99 Oxygen Delivery Method Room Air Intake Visit Reasons: Yearly check up Intake Note: Patient is here today for a physical. 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 Accompanied by: Self / Same As Patient Is last menstrual period known: Yes Last menstrual period: 10/30/23 Allergies hydroxyzine [HYDROXYZINE] Allergy (Unknown, Verified 10/30/23 15:49) HIVES trazodone Adverse Reaction (Intermediate, Verified 10/30/23 15:49) Hallucinations bees Allergy (Unknown, Uncoded 10/30/23 15:08) cellulitis of large surrounding area Medication List - Last Reconciled 10/30/23 by Preston Abdullahi PA-C cholecalciferol (vitamin D3) 50 mcg PO DAILY clonazepam 1 mg PO DAILY docusate sodium 200 mg (2 x 100 mg) PO BEDTIME escitalopram oxalate 20 mg PO DAILY linaclotide (Linzess) 290 mcg PO QAM sennosides (Natural Senna Laxative) 17.2 mg (2 x 8.6 mg) PO BEDTIME topiramate (Topamax) 50 mg PO BEDTIME 90 days Tobacco use date assessed: 10/30/23 Dental Screening Dental Screen Date: 10/30/23 Did you have a dental visit in the last 12 months?: Yes Did you have a dental problem in the last 6 months where you did not have access to dental care?: No Was dental information given to patient?: Patient has dentist HPI Yearly check up HPI Details Patient is a 43-year-old female here today for a routine annual physical.? Patient has a past medical history significant for generalized anxiety disorder, insomnia, chronic neck pain, chronic abdominal discomfort. Concern--> reports having bilateral feet pain that causes her decrease in her ability to physical activity. She was advised to see a network infrastructure architect. Lower leg pain and varicosities:? Patient is followed by vascular surgeon in has gotten ultrasounds. She has gotten multiple procedures on her lower extremities for her varicosities.? Patient continues to have pain in the posterior aspect of her right lower extremity. .. MAYI: Is doing in home therapy with her family . Does use Wellbtrin 300mg daily with good effect. Only using Clonazepam on a PRN basis. Ports having a lot of trouble with sleep and feels that clonidine was not helpful self discontinued. Has tried hydroxyzine though had allergy to this medication. We did discuss starting doxepin though there is a interaction with other psych medications he is taking. .. Obesity: Has unfortunately gained weight since last office visit reports she has been stress eating. She reports she has went through a bad break-up been has used food to help her with her emotions.. Has use phentermine in the past with good effect and lost over 10 lb. She is interested in starting this medication for 28 day. To help kick start weight loss again. Vaccines: Up-to-date with COVID vaccine, tetanus vaccine, UTD with flu vac Loan Specialist: does see SHIPPING RECEIVING MANAGER in [facility] Medical History (Updated 11/03/23 @ 07:53 by Preston Abdullahi PA-C) TMJ (dislocation of temporomandibular joint) Chronic idiopathic constipation Anxiety Insomnia Surgical History History of section History of wisdom tooth extraction History of tubal ligation Family History Father No problems noted. Mother No problems noted. Daughter Mental health disorder Son Mental health disorder Social History (Updated 10/30/23 @ 15:53 by Preston Abdullahi PA-C) Housing: House Alcohol intake: current Alcohol intake frequency: holidays/special occasions only Patient Tobacco Use Status: Never used Tobacco e-Cigarette/Vaping Use: Never Used Second Hand Smoke Exposure: No Substance Use Type: Marijuana service: No Current occupational status: employed Current occupation: [employer] Cognitive needs: No Hearing needs: No Vision needs: No Female Reproductive History Menstrual Date of last menstrual period: 10/30/23 Questionnaire PHQ-9 Over the last 2 weeks, how often have you been bothered by any of the following problems? 1. Little interest or pleasure in doing things: nearly every day 2. Feeling down, depressed, or hopeless: more than half the days 3. Trouble falling or staying asleep, or sleeping too much: more than half the days 4. Feeling tired or having little energy: nearly every day 5. Poor appetite or overeating: nearly every day 6. Feeling bad about yourself - or that you are a failure or have let yourself or your family down: more than half the days 7. Trouble concentrating on things, such as reading the newspaper or watching television: not at all 8. Moving or speaking so slowly that other people could have noticed. Or the opposite - being so fidgety or restless that you have been moving around a lot more than usual: not at all 9. Thoughts that you would be better off or of hurting yourself in some way: not at all Total score: 15 Depression Screening Interpretation: Positive Depression Screening Follow-up: Existing condition and In treatment Depression Screening Done: Yes 39978 - PHQ-9 Billing: Yes Source: Developed by Drs. Russ Cevallos, Meche Dasilva, Anuel Sweeney and colleagues, with an educational angel luis from [employer]. Thrive Questionnaire Date Thrive assessed: 10/30/23 I am a: Patient What is your living situation today?: I have a steady place to live Within the past 12 months, did the food you bought not last and you didn't have the money to get more?: Never true Within the past 12 months, did you worry whether your food would run out before you got money to buy more?: Never true Do you have trouble paying for medicines?: No Do you have trouble getting transportation to medical appointments?: No Do you have trouble paying your heating and electricity bill?: No Do you have trouble taking care of your child, family member or friend?: No Do you have trouble with day-to-day activities such as bathing, preparing meals, shopping, managing finances, etc.?: No Are you currently unemployed and looking for a job?: No Are you interested in more education?: No Please select the resources that you would like help with: None Currently or been in a relationship where the following occur: no concerns reported THRIVE Score: 0 AUDIT C Alcohol Use Questionnaire (AUDIT-C) 1. How often do you have a drink containing alcohol?: Monthly or less 2. How many drinks containing alcohol do you have on a typical day when you are drinking?: 1 or 2 3. How often do you have six or more drinks on one occasion?: Never Total Score: 1 MAYI-7 AMB Questionnaire MAYI-7 Date MAYI - 7 assessed: 10/30/23 Feeling nervous, anxious, or on edge: 1 = Several days Not being able to stop or control worryin = Nearly every day Worrying too much about different things: 3 = Nearly every day Trouble relaxin = Several days Being so restless that it is hard to sit still: 1 = Several days Becoming easily annoyed or irritable: 3 = Nearly every day Feeling afraid as if something awful might happen: 3 = Nearly every day Total MAYI-7 score (0-4 normal; 5-9 mild; 10-14 moderate; 15-21 severe): 15 Source: Developed by Drs. Russ Cevallos, Meche Dasilva, Anuel Sweeney and colleagues, with an educational angel luis from [employer]. MAYI-7 Assessment Billing MAYI-7 Assessment Tool: MAYI-7 Assessment 71353 Review of Systems Const Denies body aches, Denies chills, Denies excessive sweating, Denies fatigue, Denies fever(s) and Denies headache(s) Eyes Denies blurry vision ENT Denies dysphagia, Denies vertigo, Denies dizziness, Denies headache(s), Denies hearing loss and Denies tinnitus Card Denies chest pain, Denies chest pain with activity, Denies syncope, Denies irregular heart rhythm and Denies dyspnea Resp Denies chest congestion, Denies cough, Denies hemoptysis, Denies dyspnea and Denies wheezing GI Denies abdominal pain, Denies melena, Denies hematochezia, Denies coffee ground emesis, Denies dysphagia, Denies diarrhea, Denies nausea and Denies vomiting Denies urinary frequency, Denies dysuria, Denies urinary hesitancy and Denies urinary urgency Musc Denies arthralgias, Denies limited range of motion, Denies muscle cramps and Denies muscle weakness Skin/Breast Denies rash and Denies skin ulcer Neuro Denies Abnormal speech present, Denies confusion, Denies vertigo, Denies dizziness, Denies syncope, Denies headache(s), Denies memory loss and Denies seizure-like activity Psych Denies anxiety, Denies confusion, Denies depression, Denies memory loss, Denies panic attacks and Denies paranoia Endo Denies excessive sweating, Denies fatigue, Denies flushing, Denies polydipsia and Denies polyuria Aller/Immun Denies wheezing Physical exam (Primary Care) Vital Signs: Last Vital Signs Pulse 70 10/30/23 15:34 BP 110/68 10/30/23 15:34 Pulse Ox 99 10/30/23 15:34 Oxygen Delivery Method Room Air 10/30/23 15:34 BMI result Body Mass Index 32.0 Tobacco/Smoking Status: Tobacco use Status Tobacco use date assessed 10/30/23 10/30/23 15:43 Patient Tobacco Use Status Never used Tobacco 10/30/23 15:53 e-Cigarette/Vaping Use Never Used 10/30/23 15:53 PHQ-9: PHQ-9 Score PHQ-9: Total score 15 10/30/23 15:54 Depression Screening Interpretation: Positive Depression Screening Follow-up: Existing condition and In treatment Thrive Assessment: Date of Thrive Assessment Date Thrive assessed 10/30/23 10/30/23 15:43 Currently or been in a relationship where the following occur: no concerns reported Const General: cooperative, comfortable, no acute distress, alert and awake; No confusion Orientation/consciousness: oriented to person, oriented to place, patient oriented x3 and No confusion HENMT Head: Yes normocephalic Ears: external ears normal and TM's normal bilaterally Face and sinus: No sinus tenderness Mouth: Normal oral and palatal mucosa present and tongue normal Teeth and gingiva: dentition normal and gingiva normal Throat: Yes posterior oropharynx normal, Yes tonsils normal and Yes uvula midline Eyes Conjunctivae: conjunctivae normal Sclerae: sclerae normal Pupils: Equal, round and reactive pupils present EOM: EOMs intact bilaterally Direct Ophthalmoscopy: No no photophobia Neck Neck: Yes no lymphadenopathy, No tender and Yes no JVD Thyroid: Thyroid normal Carotids: no bruits Chest Chest palpation & inspection: no tenderness Resp Effort & Inspection: normal respiratory effort, no audible wheezes, not labored and no stridor Auscultation: no crackles, no rales, no rhonchi and no wheezes Cardio Jugular venous distension: no JVD Rate: regular rate, not bradycardic and not tachycardic Rhythm: regular rhythm Bruits: no carotid bruits Peripheral pulses: Peripheral pulses 2+ throughout GI Inspection: Yes normal to inspection, No abdominal wall ecchymosis and No visible herniation Palpation (GI): Soft to palpation, nontender, no guarding, not rigid and No hepatosplenomegaly present Auscultation: normoactive bowel sounds General: Yes no CVA tenderness Back/Spine/Pelvis Back: no CVA tenderness and No back tenderness Cervical Spine: cervical ROM normal Thoracic/Lumbar Spine: thoracic and lumbar spine normal to inspection, straight leg raise negative bilaterally, No thoraco-lumbar ROM limited and No lumbar spinal tenderness Skin Lesions: no lesions Rashes: no rashes Wounds: no wounds Neuro General: oriented to person, oriented to place, patient oriented x3, CN's II-XI intact bilaterally and No confusion Cranial nerves: Yes Equal, round and reactive pupils present and Yes Normal accommodation reflex present Cognition (Neuro): normal cognition Speech: No Abnormal speech present Gait exam (Neuro): Normal gait present Motor exam (neuro): 5/5 motor strength present throughout Extrem Right upper extremity: full ROM; no cyanosis Left upper extremity: full ROM; no cyanosis Right lower extremity: no edema Left lower extremity: no edema Psych Appearance: grossly normal Mental Status: mental status grossly normal Affect: normal affect Attitude: cooperative Thought process: Normal thought process present Assessment and Plan Assessment & Plan (1) Annual physical exam: Code(s): Z00.00 - Encounter for general adult medical examination without abnormal findings (2) MAYI (generalized anxiety disorder): Code(s): F41.1 - Generalized anxiety disorder Plan: Patient's anxiety has been fairly well managed on current dose of Wellbutrin and p.r.n. use of clonazepam. She still speaks with a mental health therapist and has a mental med provider. (3) Varicose veins of right lower extremity with inflammation: Comment: 08/02/2022 - right small saphenous vein radiofrequency ablation Code(s): I83.11 - Varicose veins of right lower extremity with inflammation Plan: She is recently underwent another vein surgery in her lower extremity, followed by [place] vascular surgeon.. . (4) Obese: Code(s): E66.9 - Obesity, unspecified Qualifiers: Body mass index: BMI 30.0-30.9 Obesity classification: adult class 1 (BMI 30 - 34.9) Obesity type: due to excess calories Serious obesity comorbidity presence: without serious comorbidity Qualified Code(s): E66.09 - Other obesity due to excess calories; Z68.30 - Body mass index [BMI]30.0-30.9, adult Plan: Unfortunately has gained weight since last office visit.. Has been dealing with personal issues. As per HPI patient is interested in re-starting phentermine again for another 28 day trial to help kick start weight loss. Has been effective for her in the past and was able to lose 110 lb. We did discuss the habit-forming nature of this medication and possible side effects and patient does understand and agrees. (5) Plantar fasciitis, bilateral: Code(s): M72.2 - Plantar fascial fibromatosis Plan: Does have signs and symptoms of bilateral plantar fasciitis. Will refer to Podiatry for possible evaluation and treatment. (6) MDD (major depressive disorder), recurrent episode, moderate: Code(s): F33.1 - Major depressive disorder, recurrent, moderate Plan: Patient's PHQ-9 score positive for depression which has been existing condition for her. She is speaking with a mental health therapist and has a mental health med provider. Orders: Orders Comprehensive [place]. Panel Fast 10/30/23 Z13.1 - Encounter for screening for diabetes mellitus Referrals Podiatry Referral M72.2 - Plantar fascial fibromatosis Medications: New phentermine must administer 30 minutes before or 1-2 hours after breakfast 37.5 mg PO DAILY 28 days 28 caps 0RF E66.09 - Other obesity due to excess calories, Z68.30 - Body mass index [BMI] 30.0-30.9, adult Discontinued clonazepam Discontinued Reason: Doctor's Order 2 mg (2 x 1 mg) PO DAILY 15 days PRN 30 tabs 1RF anxiety F41.9 - Anxiety disorder, unspecified quetiapine Discontinued Reason: Doctor's Order 25 mg PO BEDTIME 90 tabs 3RF F51.01 - Primary insomnia clonazepam Discontinued Reason: Doctor's Order 2 mg PO DAILY 30 days PRN 30 tabs 1RF panic attack(s) F41.9 - Anxiety disorder, unspecified meloxicam Discontinued Reason: Doctor's Order 15 mg PO DAILY 14 tabs 0RF Coding Level of Care Code Est Pt Prev Care 40-64y(13152) Diagnoses Annual physical exam Z00.00 MAYI (generalized anxiety disorder) F41.1 Varicose veins of right lower extremity with inflammation I83.11 Class 1 obesity due to excess calories without serious comorbidity with body mass index (BMI) of 30.0 to 30.9 in adult E66.09; Z68.30 Body mass index: BMI 30.0-30.9 Obesity classification: adult class 1 (BMI 30 - 34.9) Obesity type: due to excess calories Serious obesity comorbidity presence: without serious comorbidity Plantar fasciitis, bilateral M72.2 MDD (major depressive disorder), recurrent episode, moderate F33.1 Additional Codes MAYI-7 Assessment Billing - MAYI-7 Assessment Tool: MAYI-7 Assessment 19752 ([id number])
== END 2023-10-30 16:12 | disposition home or self-care (01) ==
PROVIDERS: PCP Physician Assistant; Visit Provider Physician Assistant
DX: Z00.00 Encounter for general adult medical examination without abnormal findings (principal); F33.1 Major depressive disorder, recurrent, moderate; E66.09 Other obesity due to excess calories; Z68.30 Body mass index [BMI] 30.0-30.9, adult; M72.2 Plantar fascial fibromatosis
CPT/HCPCS: 99396

== ENCOUNTER 2024-01-15 13:55 | Outpatient (AMB) | payer OTHER, SELFPAY ==
[2024-01-15 13:56] VITALS: BP 110/66; PULSE 74; TEMP 36.7; O2SAT 98; BMI 31.9
--- NOTE | 2024-01-15 13:56 | MHC.OFFWIV ---
Intake Vital Signs 01/15/24 13:56 Height 5 ft 3 in Weight 180 lb BMI 31.9 BP 110/66 Blood Pressure Location Rt brachial Position Sitting Pulse 74 Pulse Source Pulse Oximeter Temp 98.0 F Temp Source Oral Pulse Oximetry (%) 98 Intake Visit Reasons: EP LT ear/Neck pain Intake Note: pt is here for left ear and neck pain Patient Tobacco Use Status: Never used Tobacco Allergies hydroxyzine [HYDROXYZINE] Allergy (Unknown, Verified 01/15/24 14:17) HIVES trazodone Adverse Reaction (Intermediate, Verified 01/15/24 14:17) Hallucinations bees Allergy (Unknown, Uncoded 01/15/24 14:17) cellulitis of large surrounding area Medication List - Last Reconciled 01/15/24 by JENNIFER Mcqueen cholecalciferol (vitamin D3) 50 mcg PO DAILY clonazepam 1 mg PO DAILY cyclobenzaprine 5 mg PO BEDTIME PRN docusate sodium 200 mg (2 x 100 mg) PO BEDTIME escitalopram oxalate 20 mg PO DAILY linaclotide (Linzess) 290 mcg PO QAM meloxicam 15 mg PO DAILY phentermine 37.5 mg PO DAILY 28 days sennosides (Natural Senna Laxative) 17.2 mg (2 x 8.6 mg) PO BEDTIME topiramate (Topamax) 50 mg PO BEDTIME 90 days Do you need a note to return to daycare/school/sports/work: No HPI HPI Comments History of Present Illness Details Patient is a 43-year-old female in today for sick visit. Patient states for the past 3 days she has developed a clicking noise in her ear, and left-sided trapezius pain. Patient has history of ear infection wanted to come in today to make sure she did not have an ear infection because she is flying to [place] in 2 days. Denies ear pain, but feels ear fullness. Has full range of motion of her neck to flexion extension and rotation. Denies dizziness or headache. Denies chest pain shortness a breath. No recent fevers. On physical exam patient has no sign of otitis media. No mastoid tenderness. No change in hearing. Does have tenderness to left trapezius muscle. [facility] Medical History TMJ (dislocation of temporomandibular joint) Chronic idiopathic constipation Anxiety Insomnia Surgical History History of section History of wisdom tooth extraction History of tubal ligation Family History Father No problems noted. Mother No problems noted. Daughter Mental health disorder Son Mental health disorder Social History Housing: House Alcohol intake: current Alcohol intake frequency: holidays/special occasions only Patient Tobacco Use Status: Never used Tobacco e-Cigarette/Vaping Use: Never Used Second Hand Smoke Exposure: No Substance Use Type: Marijuana service: No Current occupational status: employed Current occupation: [employer] Cognitive needs: No Hearing needs: No Vision needs: No Review of Systems Const All systems reviewed & are unremarkable except as noted in HPI and below Denies chills and Denies fever(s) Physical Exam Vital Signs: Last Vital Signs Temp 98.0 F 01/15/24 13:56 Pulse 74 01/15/24 13:56 BP 110/66 01/15/24 13:56 Pulse Ox 98 01/15/24 13:56 BMI result Body Mass Index 31.9 Vital signs reviewed stable. Const General: cooperative, no acute distress and alert Orientation/consciousness: patient oriented x3 Limitations: no limitations HEENT Head: Yes normal to inspection Ears: TM's normal bilaterally Neck Neck: Yes normal visual inspection, Yes full ROM and Yes tender (Left trapezius) Resp Effort & Inspection: normal respiratory effort Auscultation: clear to auscultation bilaterally Cardio Rate: regular rate Rhythm: regular rhythm Heart sounds: S1 normal heart sound present and S2 normal heart sound present Neuro General: patient oriented x3 Assessment & Plan Assessment & Plan (1) Strain of trapezius muscle: Comment: Likely strain of left trapezius muscle. Patient will be given meloxicam to be taken as directed she will also be given cyclobenzaprine p.r.n. at night. Code(s): S46.819A - Strain of other muscles, fascia and tendons at shoulder and upper arm level, unspecified arm, initial encounter Qualifiers: Encounter type: subsequent encounter Laterality: left Qualified Code(s): S46.812D - Strain of other muscles, fascia and tendons at shoulder and upper arm level, left arm, subsequent encounter Plan: Take your medications as prescribed. If you were prescribed antibiotics today, it is important that you take your medication to their entirety, do not skip any doses, do not finish them early. Follow-up with your primary care provider this week. Return to the emergency department with new or worsening symptoms. Such as fevers, chills, chest pain, shortness of breath, nausea, vomiting, dizziness, headache, vision changes, lethargy In case of emergency call 911 Plan Follow-up with PCP Medications: New meloxicam Do not combine with other NSAIDS. 15 mg PO DAILY 14 tabs 0RF cyclobenzaprine 5 mg PO BEDTIME PRN 7 tabs 0RF muscle spasm Coding Level of Care Code Est Pt Level 3 (09893) Diagnoses Strain of left trapezius muscle, subsequent encounter S48.246R Encounter type: subsequent encounter Laterality: left Time Spent (min) 21
== END 2024-01-15 14:33 | disposition home or self-care (01) ==
PROVIDERS: PCP Physician Assistant; Visit Provider Nurse Practitioner Primary Care
DX: S46.812D Strain of other muscles, fascia and tendons at shoulder and upper arm level, left arm, subsequent encounter (principal)
CPT/HCPCS: 99213

== ENCOUNTER 2024-04-26 10:30 | Outpatient (REF) | payer OTHER, SELFPAY ==
[2024-04-26 13:44] LABS: Alanine Aminotransferase 9 U/L (0-31); Albumin Level 3.9 g/dL (3.5-5.0); Alkaline Phosphatase 48 U/L (39-117); Anion Gap 9 (12-20); Aspartate Amino Transferase 12 U/L (5-31); Bilirubin Total 0.3 mg/dL (0.0-1.0); Blood Urea Nitrogen 8 mg/dL (9-16); Calcium 8.9 mg/dL (8.4-10.2); Carbon Dioxide 25 mmol/L (22-29); Chloride 110 mmol/L (96-108); Estimated Glomerular Filt Rate > 60; Glucose Fasting 89 mg/dL (60-99); Sodium 140 mmol/L (135-145); Total Protein 6.3 g/dL (6.5-8.0)
== END 2024-04-26 10:31 | disposition home or self-care (01) ==
LOC: HO.10HDL 10:30
PROVIDERS: Visit Provider Physician Assistant
DX: Z13.1 Encounter for screening for diabetes mellitus (principal)
CPT/HCPCS: 36415; 80053

== ENCOUNTER 2024-04-28 14:54 | Outpatient (AMB) | payer OTHER, SELFPAY ==
[2024-04-28 14:56] VITALS: BP 102/64; PULSE 99; O2SAT 95; BMI 31.0
--- NOTE | 2024-04-28 14:56 | MHC.PC.OV ---
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 Required: No Accompanied by: Self / Same As Patient Allergies hydroxyzine [HYDROXYZINE] Allergy (Unknown, Verified 04/28/24 15:03) HIVES trazodone Adverse Reaction (Intermediate, Verified 04/28/24 15:03) Hallucinations bees Allergy (Unknown, Uncoded 04/28/24 15:03) cellulitis of large surrounding area Medication List - Last Reconciled 04/28/24 by Preston Abdullahi PA-C bupropion HCl SR 100 mg PO BID cholecalciferol (vitamin D3) 50 mcg PO DAILY clonazepam 1 mg PO DAILY cyclobenzaprine 5 mg PO BEDTIME PRN docusate sodium 200 mg (2 x 100 mg) PO BEDTIME escitalopram oxalate 20 mg PO DAILY lactulose 20 grams (30 mL) PO DAILY PRN 30 days linaclotide (Linzess) 290 mcg PO QAM meloxicam 15 mg PO DAILY phentermine 37.5 mg PO DAILY 28 days sennosides (Natural Senna Laxative) 17.2 mg (2 x 8.6 mg) PO BEDTIME topiramate 100 mg PO DAILY Tobacco use date assessed: 10/30/23 Dental Screening Dental Screen Date: 10/30/23 HPI weight check up HPI Details Patient is a 43-year-old female here today for a follow-up visit.? Patient has a past medical history significant for generalized anxiety disorder, insomnia, chronic neck pain, chronic abdominal discomfort. Concern--> she reports she has been having a lot of trouble lately sleeping. Has tried multiple sleeping medications including trazodone, Seroquel, doxepin, hydroxyzine all without effectiveness and side effects. We did discuss trialing low-dose zolpidem to use on an as needed basis. .. MAYI: Is doing in home therapy with her family . Is using Wellbutrin 100 mg b.i.d. now. Only using Clonazepam on a PRN basis. .. Constipation: Continues to have a lot of trouble with constipation, often goes several days without having a bowel movement. She reports the Linzess at 290 mg is much too powerful and cause his diarrhea. She is willing to try lactulose on a p.r.n. basis .. Obesity: Has lost weight since last office visit. Has been on stable dose of phentermine which seems to have been effective for her.. She reports she has went through a bad break-up been has used food to help her with her emotions.. Has use phentermine in the past with good effect and lost over 10 lb. She is interested in starting this medication for 28 day. To help kick start weight loss again. [facility] Medical History TMJ (dislocation of temporomandibular joint) Chronic idiopathic constipation Anxiety Insomnia Surgical History History of section History of wisdom tooth extraction History of tubal ligation Family History Father No problems noted. Mother No problems noted. Daughter Mental health disorder Son Mental health disorder Social History Housing: House Alcohol intake: current Alcohol intake frequency: holidays/special occasions only Patient Tobacco Use Status: Never used Tobacco e-Cigarette/Vaping Use: Never Used Second Hand Smoke Exposure: No Substance Use Type: Marijuana service: No Current occupational status: employed Current occupation: [employer] Cognitive needs: No Hearing needs: No Vision needs: No Questionnaire Thrive Questionnaire Date Thrive assessed: 10/30/23 MAYI-7 AMB Questionnaire MAYI-7 Date MAYI - 7 assessed: 10/30/23 Source: Developed by Drs. Russ Cevallos, Meche Dasilva, Anuel Sweeney and colleagues, with an educational angel luis from [employer]. Review of Systems Const Denies headache(s) Eyes Denies loss of vision ENT Denies vertigo, Denies dizziness, Denies headache(s) and Denies sore throat Card Denies chest pain, Denies leg edema and Denies lightheadedness Resp Denies cough, Denies hemoptysis and Denies wheezing GI Denies abdominal pain, Denies melena, Denies constipation, Denies diarrhea and Denies vomiting Denies urinary frequency, Denies dysuria and Denies urinary urgency Musc Denies arthralgias, Denies joint swelling, Denies numbness and Denies tingling Neuro Denies Abnormal speech present, Denies behavioral changes, Denies vertigo, Denies dizziness, Denies headache(s), Denies loss of vision, Denies memory loss, Denies numbness and Denies tingling Psych Denies anxiety, Denies behavioral changes, Denies depression, Denies memory loss and Denies panic attacks Carlito/Lymph Denies easy bleeding and Denies easy bruising Aller/Immun Denies wheezing Physical exam (Primary Care) Vital Signs: Last Vital Signs Pulse 99 04/28/24 14:56 BP 102/64 04/28/24 14:56 Pulse Ox 95 04/28/24 14:56 Oxygen Delivery Method Room Air 04/28/24 14:56 BMI result Body Mass Index 31.0 Tobacco/Smoking Status: Tobacco use Status Tobacco use date assessed 10/30/23 04/28/24 15:02 Patient Tobacco Use Status Never used Tobacco 04/28/24 15:02 e-Cigarette/Vaping Use Never Used 04/28/24 15:02 Thrive Assessment: Date of Thrive Assessment Date Thrive assessed 10/30/23 04/28/24 15:02 Const General: healthy appearing, no acute distress, alert and awake Nutritional Appearance: well nourished Orientation/consciousness: oriented to person, oriented to place and oriented to time HENMT Ears: TM's normal bilaterally General nose exam: Normal nasal mucous membranes and turbinates present Eyes Conjunctivae: conjunctivae normal Sclerae: sclerae normal Pupils: Equal, round and reactive pupils present Neck Neck: Yes no lymphadenopathy and Yes no JVD Thyroid: Thyroid normal Carotids: no bruits Resp Effort & Inspection: normal respiratory effort and not tachypneic Auscultation: no crackles, no rales, no rhonchi and no wheezes Cardio Rate: regular rate Rhythm: regular rhythm Heart sounds: no murmurs and normal S1 and S2 GI Palpation (GI): Soft to palpation, nontender, no hepatomegaly and no splenomegaly Auscultation: normal bowel sounds Skin General skin exam: no rashes or lesions noted and dry skin Neuro General: oriented to person, oriented to place and oriented to time Cranial nerves: Yes Equal, round and reactive pupils present Speech: No Abnormal speech present Gait exam (Neuro): Normal gait present Motor exam (neuro): no tremor noted Extrem Right upper extremity: full ROM Left upper extremity: full ROM Right lower extremity: full ROM; no edema Left lower extremity: full ROM; no edema Psych Mental Status: mental status grossly normal Speech and movement: Normal speech and movement present Affect: normal affect Attitude: cooperative Thought process: Normal thought process present Assessment and Plan Assessment & Plan (1) Obese: Code(s): E66.9 - Obesity, unspecified Qualifiers: Body mass index: BMI 30.0-30.9 Obesity classification: adult class 1 (BMI 30 - 34.9) Obesity type: due to excess calories Serious obesity comorbidity presence: without serious comorbidity Qualified Code(s): E66.09 - Other obesity due to excess calories; Z68.30 - Body mass index [BMI]30.0-30.9, adult Plan: Unfortunately has gained weight since last office visit.. Has been dealing with personal issues. As per HPI patient is interested in re-starting phentermine again for another 28 day trial to help kick start weight loss. Has been effective for her in the past and was able to lose 10 lb. We did discuss the habit-forming nature of this medication and possible side effects and patient does understand and agrees. (2) Constipation: Code(s): K59.00 - Constipation, unspecified Qualifiers: Constipation type: other constipation type Qualified Code(s): K59.09 - Other constipation Plan: As per HPI, patient interested in trying lactulose on an as needed basis if have not had bowel movement in several days. She does have Linzess available to her though causes diarrhea. Will consider decreasing dose of Linzess. Of note patient has had 4 full-term pregnancies and does has high-risk for pelvic floor dysfunction. She is interested in pelvic floor therapy (3) Insomnia: Code(s): G47.00 - Insomnia, unspecified Qualifiers: Insomnia type: primary Qualified Code(s): F51.01 - Primary insomnia Plan: As per HPI patient continues to have a lot of trouble sleeping over the last several years. Has tried multiple sleeping medications in the past though have not been effective or caused side effects. She is willing to try low-dose zolpidem 5 mg on a p.r.n. basis if having trouble sleeping. (4) Anxiety: Code(s): F41.9 - Anxiety disorder, unspecified Plan: Continues to follow a mental health med provider is providing medications. She is now using Wellbutrin 100 mg b.i.d. Orders: Orders PT Evaluation and Treatment 04/28/24 K59.09 - Other constipation T Spot TB 04/28/24 Z11.1 - Encounter for screening for respiratory tuberculosis Medications: New zolpidem may repeat once if no response in 30-60 minutes 5 mg PO BEDTIME 7 tabs 0RF 7 days F51.01 - Primary insomnia lactulose 20 grams (30 mL) PO DAILY PRN 1,200 mL 1RF constipation 30 days K59.09 - Other constipation Refilled phentermine must administer 30 minutes before or 1-2 hours after breakfast 37.5 mg PO DAILY 28 caps 0RF 28 days E66.09 - Other obesity due to excess calories, Z68.30 - Body mass index [BMI] 30.0-30.9, adult Coding Level of Care Code Est Pt Level 4 (34838) Diagnoses Class 1 obesity due to excess calories without serious comorbidity with body mass index (BMI) of 30.0 to 30.9 in adult E66.09; Z68.30 Body mass index: BMI 30.0-30.9 Obesity classification: adult class 1 (BMI 30 - 34.9) Obesity type: due to excess calories Serious obesity comorbidity presence: without serious comorbidity Other constipation K59.09 Constipation type: other constipation type Primary insomnia F51.01 Insomnia type: primary Anxiety F41.9
== END 2024-04-28 15:38 | disposition home or self-care (01) ==
PROVIDERS: PCP Physician Assistant; Visit Provider Physician Assistant
DX: K59.09 Other constipation (principal); F51.01 Primary insomnia; Z68.30 Body mass index [BMI] 30.0-30.9, adult; E66.09 Other obesity due to excess calories; F41.9 Anxiety disorder, unspecified
CPT/HCPCS: 99214

== ENCOUNTER 2024-06-03 09:53 | Outpatient (AMB) | payer OTHER, SELFPAY ==
--- NOTE | 2024-06-03 10:28 | AM.OFFWIN_ITS ---
Intake Vital Signs 06/03/24 10:30 Height 5 ft 3 in Weight 177 lb BMI 31.4 BP 120/90 H Blood Pressure Location Lt brachial Position Sitting Pulse 92 Pulse Source Pulse Oximeter Temp 99.0 F Temp Source Oral Pulse Oximetry (%) 98 Oxygen Delivery Method Room Air Intake Visit Reasons: EP-flu symtoms Intake Note: Patient here for post nasal drip, sinus pressure, diarrhea, bodyahes and sore throat which started about 2-3 days ago Patient Tobacco Use Status: Never used Tobacco Allergies hydroxyzine [HYDROXYZINE] Allergy (Unknown, Verified 06/03/24 10:31) HIVES trazodone Adverse Reaction (Intermediate, Verified 06/03/24 10:31) Hallucinations bees Allergy (Unknown, Uncoded 06/03/24 10:31) cellulitis of large surrounding area Do you need a note to return to daycare/school/sports/work: Yes HPI HPI Comments History of Present Illness Details Patient is a 43-year-old female complaining of post nasal drip, sinus pressure, diarrhea, fatigue, body aches and sore throat x 3 days. She states she is coughing and it is keeping her up at night. She has not taken any medic ations to make herself feel better. She describes the diarrhea as ?pissing out her butt , she denies any recent antibiotic use, foreign travel or unusual foods in her diet. She has not taken any medications to make herself feel better. [facility] Medical History TMJ (dislocation of temporomandibular joint) Chronic idiopathic constipation Anxiety Insomnia Surgical History History of section History of wisdom tooth extraction History of tubal ligation Family History Father No problems noted. Mother No problems noted. Daughter Mental health disorder Son Mental health disorder Social History Housing: House Alcohol intake: current Alcohol intake frequency: holidays/special occasions only Patient Tobacco Use Status: Never used Tobacco e-Cigarette/Vaping Use: Never Used Second Hand Smoke Exposure: No Substance Use Type: Marijuana service: No Current occupational status: employed Current occupation: [employer] Cognitive needs: No Hearing needs: No Vision needs: No Review of Systems Const All systems reviewed & are unremarkable except as noted in HPI and below Physical Exam Vital Signs: Last Vital Signs Temp 99.0 F 06/03/24 10:30 Pulse 92 06/03/24 10:30 BP 120/90 H 06/03/24 10:30 Pulse Ox 98 06/03/24 10:30 Oxygen Delivery Method Room Air 06/03/24 10:30 BMI result Body Mass Index 31.4 Const General: cooperative, healthy appearing, comfortable and no acute distress Orientation/consciousness: patient oriented x3 Limitations: no limitations HEENT Head: Yes normal to inspection Ears: hearing grossly normal bilaterally, external ears normal and TM's normal bilaterally General nose exam: Normal external nose present, Normal nares present and No nasal discharge present Face and sinus: Yes normal facial exam and Yes sinuses nontender Mouth: Normal oral and palatal mucosa present and moist mucous membranes Throat: Yes tonsils normal, Yes uvula midline and Yes posterior oropharynx abnormal (Erythema) Eyes General: appearance normal, both eyes and all related structures Neck Neck: Yes normal visual inspection Resp Effort & Inspection: normal respiratory effort, able to speak in complete sentences, no respiratory distress, not tachypneic, no tripod positioning and no use of accessory muscles Auscultation: clear to auscultation bilaterally Cardio Rate: regular rate Rhythm: regular rhythm Heart sounds: normal S1 and S2 Skin General skin exam: no rashes or lesions noted Neuro General: patient oriented x3 Extrem General: Yes normal to inspection and Yes no clubbing, cyanosis or edema Assessment & Plan Assessment & Plan (1) URI (upper respiratory infection): Code(s): J06.9 - Acute upper respiratory infection, unspecified Qualifiers: URI type: unspecified viral URI Qualified Code(s): J06.9 - Acute upper respiratory infection, unspecified Plan: Vital signs are stable, patient well-appearing, lung sounds are clear, no indication for a chest x-ray. Recommended she stay well hydrated, take some time off of work and use [id number] medications to treat her symptoms. Plan See above Coding Level of Care Code Est Pt Level 3 (16269) Diagnoses Viral upper respiratory tract infection J06.9 URI type: unspecified viral URI
[2024-06-03 10:30] VITALS: BP 120/90; PULSE 92; TEMP 37.2; O2SAT 98; BMI 31.4
== END 2024-06-03 10:56 | disposition home or self-care (01) ==
PROVIDERS: PCP Physician Assistant; Visit Provider Physician Assistant
DX: J06.9 Acute upper respiratory infection, unspecified (principal); Z13.9 Encounter for screening, unspecified

== ENCOUNTER 2024-06-03 09:53 | Outpatient (REF) | payer OTHER, SELFPAY ==
[2024-06-03 14:04] LABS: Influenza A PCR NEGATIVE (Negative); Influenza B PCR NEGATIVE (Negative); Resp Syncy Virus RNA Qual PCR NEGATIVE (Negative); SARS COV2 PCR INHOUSE NEGATIVE (Negative)
== END 2024-06-03 09:54 | disposition home or self-care (01) ==
LOC: HO.LAB 09:53
PROVIDERS: PCP Physician Assistant; Visit Provider Physician Assistant
DX: J06.9 Acute upper respiratory infection, unspecified (principal)
CPT/HCPCS: 0241U; 87880; 99212

== ENCOUNTER 2024-07-20 09:57 | Outpatient (RCR) | payer OTHER, SELFPAY ==
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
--- NOTE | 2024-08-11 14:10 | MHC.PT.DC ---
[facility] [place] Office [place] Office [place] Office [address] Jodee Hernandez [address] [phone] F: [phone] F: [phone] F: [phone] F: [phone] Physical Therapy Discharge Report Diagnosis: Constipation Date of Surgery: NA Date of Evaluation: 07/20/24 Date of Discharge: 08/11/24 Treatments to Date: 1 Cancellations to Date: 0 No Shows to Date: 3 Discharge Status: Visit Non-compliance Discharge Summary: Tom no showed for 3 visits after her evaluation. She is therefore being d/c from PT for non compliance. Electronically signed by: Micki Rodriguez PT DPT Please sign and return to therapist. Thank you for your referral.
== END 2024-08-11 14:10 | disposition home or self-care (01) ==
LOC: HO.PT 09:57
PROVIDERS: PCP Physician Assistant; Visit Provider Physician Assistant
DX: K59.09 Other constipation (principal)
CPT/HCPCS: 97112; 97162

== ENCOUNTER 2024-08-17 10:48 | Outpatient (REF) | payer OTHER, SELFPAY ==
[2024-08-20 05:44] LABS: TS Negative Control Passed; TS Panel A 0; TS Panel B 0; TS Positive Control Passed; TSpotTB Negative (Negative)
== END 2024-08-17 10:49 | disposition home or self-care (01) ==
LOC: HO.10HDL 10:48
PROVIDERS: Visit Provider Physician Assistant
DX: Z11.1 Encounter for screening for respiratory tuberculosis (principal)
CPT/HCPCS: 36415; 86481

== ENCOUNTER 2024-10-11 09:44 | Outpatient (AMB) | payer OTHER, SELFPAY ==
--- NOTE | 2024-10-11 10:30 | MHC.OFFWIV ---
Intake Vital Signs 10/11/24 10:40 Weight 190 lb BP 142/100 H Blood Pressure Location Lt brachial Position Sitting Pulse 90 Pulse Source Pulse Oximeter Pulse Oximetry (%) 98 Oxygen Delivery Method Room Air Intake Visit Reasons: EP pain on both knees specially the LT one Intake Note: Patient is here for left knee pain that has been present for about 2 weeks. Patient Tobacco Use Status: Never used Tobacco Allergies hydroxyzine [HYDROXYZINE] Allergy (Unknown, Verified 10/11/24 10:39) HIVES trazodone Adverse Reaction (Intermediate, Verified 10/11/24 10:39) Hallucinations bees Allergy (Unknown, Uncoded 10/11/24 10:39) cellulitis of large surrounding area Do you need a note to return to daycare/school/sports/work: Yes HPI HPI Comments History of Present Illness Details History of Present Illness - The patient is a 43-year-old female presenting with bilateral knee pain, notably affecting mobility. - Initially, symptoms developed in the right knee before involving the left and are described as a dull, throbbing pain extending to the foot and the hip. Denies it being sharp, shooting pain. States left leg goes numb while sleeping. Difficulty walking up stairs due to leg feeling heavy. - History includes active participation in multiple sports during her earlier years, and recent weight gain, potentially affecting knee health. - The patient reports significant impairment in mobility, affecting daily tasks and sleep, alongside menopausal symptomatology including altered menstrual patterns, getting her period 3 x a month. - Denies trauma to knees -Denies history of GI bleeding, has taken prednisone before. Physical Exam General: Cooperative, healthy appearing, comfortable, no acute distress and well developed Orientation: Patient oriented x3 Limitations: limping gait Head: Normal to inspection Ears: Hearing grossly normal bilaterally Nose: Normal external nose present Face and sinus: Normal facial exam Eyes: Appearance normal, both eyes and all related structures Neck: Normal visual inspection and Yes full ROM Respiratory: Normal respiratory effort and able to speak in complete sentences. Skin: No rashes or lesions noted Neuro: Patient oriented x3 Extremities: as below [facility] Medical History TMJ (dislocation of temporomandibular joint) Chronic idiopathic constipation Anxiety Insomnia Surgical History History of section History of wisdom tooth extraction History of tubal ligation Family History Father No problems noted. Mother No problems noted. Daughter Mental health disorder Son Mental health disorder Social History Housing: House Alcohol intake: current Alcohol intake frequency: holidays/special occasions only Patient Tobacco Use Status: Never used Tobacco e-Cigarette/Vaping Use: Never Used Second Hand Smoke Exposure: No Substance Use Type: Marijuana service: No Current occupational status: employed Current occupation: [employer] Cognitive needs: No Hearing needs: No Vision needs: No Review of Systems Const All systems reviewed & are unremarkable except as noted in HPI and below Physical Exam Extrem Right lower extremity: knee Details: normal to inspection, tenderness Location: of the lateral joint line and of the infrapatellar area, normal ROM and knee ligament exam normal; no swelling, no abrasions, no lacerations, no ecchymosis, no crepitus, no foreign bodies, no penetrating wound, no deformity and no unusual warmth Left lower extremity: knee Details: normal to inspection, tenderness Location: of the lateral joint line and of the infrapatellar area, normal ROM and knee ligament exam normal; no swelling, no abrasions, no lacerations, no ecchymosis, no crepitus, no foreign bodies, no penetrating wound, no deformity and no unusual warmth Assessment & Plan Assessment & Plan (1) Knee pain, bilateral: Code(s): M25.561 - Pain in right knee; M25.562 - Pain in left knee Qualifiers: Chronicity: acute Qualified Code(s): M25.561 - Pain in right knee; M25.562 - Pain in left knee Plan: Bilateral knee pain suggestive of possible osteoarthritis has warranted imaging studies to assess any structural abnormalities present. Initiation of a prednisone burst addresses inflammation potentially underlying these symptoms, followed by diclofenac for targeted pain management. Warned pt not to take both as the same time as risk of GI bleed but has no history. Due to reported sensitivities, the preference is towards using heating for symptomatic relief. Potential hormonal influences on joint pain, noted by her perimenopausal symptoms, drive the recommendation for gynecological evaluation regarding hormone therapy. Immediate follow-up is advised to review imaging results and assess treatment response. She has a PCP appt on November 03. Patient was informed and verbally consented to the use of an ambient scribe for clinic note documentation during this visit. Orders: Orders XR knee RT 3V Today M25.561 - Pain in right knee, M25.562 - Pain in left knee XR knee LT 3V Today M25.561 - Pain in right knee, M25.562 - Pain in left knee Medications: New diclofenac sodium 50 mg PO Q12H PRN 20 tabs 0RF pain methylprednisolone PO PER PKG DIR for 6 days 21 ea 0RF Coding Level of Care Code Est Pt Level 4 (73333) Diagnoses Acute pain of both knees M25.561; M25.562 Chronicity: acute
[2024-10-11 10:40] VITALS: BP 142/100; PULSE 90; O2SAT 98
== END 2024-10-11 11:00 | disposition home or self-care (01) ==
PROVIDERS: PCP Physician Assistant; Visit Provider Physician Assistant
DX: M25.561 Pain in right knee (principal); M25.562 Pain in left knee

== ENCOUNTER 2024-10-11 09:44 | Outpatient (REF) | payer OTHER, SELFPAY ==
--- NOTE | ~2024-10-11 | XR_ITS ---
EXAMINATION: XR KNEE 4 OR MORE VIEWS LEFT HISTORY: Pain in left knee. COMPARISON: There are no prior studies available for comparison. FINDINGS: Four views of the left knee are submitted. Osseous mineralization is normal. There is no fracture or dislocation. The joint spaces are preserved. The soft tissues are unremarkable. XR/XR knee LT 4V IMPRESSION: Unremarkable examination of the left knee. Electronically signed by: Russ Aguilar MD 10/11/2024 11:15 AM ERIN
--- NOTE | ~2024-10-11 | XR_ITS ---
EXAMINATION: XR KNEE 4 OR MORE VIEWS RIGHT HISTORY: M25.561 - Pain in right knee COMPARISON: There are no prior studies available for comparison. FINDINGS: Four views of the right knee are submitted. Osseous mineralization is normal. There is no fracture or dislocation. The joint spaces are preserved. The soft tissues are unremarkable. XR/XR knee RT 4V IMPRESSION: Unremarkable examination of the right knee. Electronically signed by: Russ Aguilar MD 10/11/2024 11:14 AM ERIN
== END 2024-10-11 09:45 | disposition home or self-care (01) ==
LOC: HO.HMGCX 09:44
PROVIDERS: PCP Physician Assistant; Visit Provider Physician Assistant
DX: M25.561 Pain in right knee (principal); M25.562 Pain in left knee
CPT/HCPCS: 73564; 99212

== ENCOUNTER → 2024-10-11 11:00 | Outpatient (BNV) | payer OTHER, SELFPAY | PROVIDERS: PCP Physician Assistant; Visit Provider Radiology Diagnostic Radiology | DX: M25.561 Pain in right knee (principal); M25.562 Pain in left knee | CPT/HCPCS: 73564 ==

== ENCOUNTER 2024-11-03 15:43 | Outpatient (AMB) | payer OTHER, SELFPAY ==
[2024-11-03 15:52] VITALS: BP 114/80; PULSE 80; TEMP 36.4; O2SAT 98; BMI 34.4
--- NOTE | 2024-11-03 15:52 | MHC.PC.OV ---
Vital Signs 11/03/24 15:52 Height 5 ft 3 in Weight 194 lb BMI 34.4 BP 114/80 Blood Pressure Location Lt brachial Position Sitting Pulse 80 Pulse Source Pulse Oximeter Temp 97.5 F Temp Source Temporal Artery Scan Pulse Oximetry (%) 98 Oxygen Delivery Method Room Air Intake Visit Reasons: ANNUAL Registered Nurse Renal Required: No Accompanied by: Self / Same As Patient Allergies hydroxyzine [HYDROXYZINE] Allergy (Unknown, Verified 11/03/24 16:11) HIVES trazodone Adverse Reaction (Intermediate, Verified 11/03/24 16:11) Hallucinations bees Allergy (Unknown, Uncoded 11/03/24 16:11) cellulitis of large surrounding area Medication List - Last Reconciled 11/03/24 by Preston Abdullahi PA-C bupropion HCl SR 100 mg PO BID cholecalciferol (vitamin D3) 50 mcg PO DAILY cyclobenzaprine 5 mg PO BEDTIME PRN diclofenac sodium 50 mg PO Q12H PRN docusate sodium 200 mg (2 x 100 mg) PO BEDTIME escitalopram oxalate 20 mg PO DAILY lactulose 20 grams (30 mL) PO DAILY PRN 30 days linaclotide (Linzess) 290 mcg PO QAM meloxicam 15 mg PO DAILY methylprednisolone PO PER PKG DIR for 6 days topiramate 100 mg PO DAILY zolpidem 10 mg PO BEDTIME PRN 14 days Tobacco use date assessed: 11/03/24 Dental Screening Dental Screen Date: 11/03/24 Did you have a dental visit in the last 12 months?: Yes Did you have a dental problem in the last 6 months where you did not have access to dental care?: No Was dental information given to patient?: Patient has dentist HPI ANNUAL HPI Details Patient is a 44-year-old female here today for a follow-up visit.? Patient has a past medical history significant for generalized anxiety disorder, insomnia, chronic neck pain, chronic abdominal discomfort. Concern--> she reports over the last 2 months having exquisite pain though of the posterior aspect of for right knee. She does report a heavy sensation in her leg and burning quality type pain in the popliteal area particularly when lying down. She did not recall any acute trauma to her knee. She recently had gotten x-rays which showed normal findings. Of note patient does have peripheral vascular disease Insomnia she reports she has been having a lot of trouble lately sleeping. Has tried multiple sleeping medications including trazodone, Seroquel, doxepin, hydroxyzine all without effectiveness and side effects. We did discuss trialing low-dose zolpidem to use on an as needed basis. .. MAYI: Is doing in home therapy with her family . Is using Wellbutrin 100 mg b.i.d. now. Only using Clonazepam on a PRN basis. .. Constipation: Continues to have a lot of trouble with constipation, often goes several days without having a bowel movement. She reports the Linzess at 290 mg is much too powerful and cause his diarrhea. She is willing to try lactulose on a p.r.n. basis .. Obesity: Has lost weight since last office visit. Has been on stable dose of phentermine which seems to have been effective for her.. She reports she has went through a bad break-up been has used food to help her with her emotions.. Has use phentermine in the past with good effect and lost over 10 lb. She is interested in starting this medication for 28 day. To help kick start weight loss again. 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 Mammo : [facility] Medical History TMJ (dislocation of temporomandibular joint) Chronic idiopathic constipation Anxiety Insomnia Surgical History History of section History of wisdom tooth extraction History of tubal ligation Family History Father No problems noted. Mother No problems noted. 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 1. Little interest or pleasure in doing things: several days 2. Feeling down, depressed, or hopeless: nearly every day 3. Trouble falling or staying asleep, or sleeping too much: nearly every day 4. Feeling tired or having little energy: nearly every day 5. Poor appetite or overeating: several days 6. Feeling bad about yourself - or that you are a failure or have let yourself or your family down: more than half the days 7. Trouble concentrating on things, such as reading the newspaper or watching television: nearly every day 8. Moving or speaking so slowly that other people could have noticed. Or the opposite - being so fidgety or restless that you have been moving around a lot more than usual: not at all 9. Thoughts that you would be better off or of hurting yourself in some way: not at all Total score: 16 Depression Screening Interpretation: Positive Depression Screening Follow-up: Existing condition and In treatment Depression Screening Done: Yes 49338 - PHQ-9 Billing: Yes Source: Developed by Drs. Russ Cevallos, Meche Dasilva, Anuel Sweeney and colleagues, with an educational angel luis from [employer]. Thrive Questionnaire Date Thrive assessed: 11/03/24 I am a: Patient What is your living situation today?: I choose not to answer this question Within the past 12 months, did the food you bought not last and you didn't have the money to get more?: Often true Within the past 12 months, did you worry whether your food would run out before you got money to buy more?: Often true Do you have trouble paying for medicines?: I choose not to answer this question Do you have trouble getting transportation to medical appointments?: I choose not to answer this question Do you have trouble paying your heating and electricity bill?: Yes Do you have trouble taking care of your child, family member or friend?: No Do you have trouble with day-to-day activities such as bathing, preparing meals, shopping, managing finances, etc.?: No Are you currently unemployed and looking for a job?: No Are you interested in more education?: No Please select the resources that you would like help with: None Currently or been in a relationship where the following occur: I choose not to answer THRIVE Score: 3 AUDIT C Alcohol Use Questionnaire (AUDIT-C) 1. How often do you have a drink containing alcohol?: Never 3. How often do you have six or more drinks on one occasion?: Never Total Score: 0 MAYI-7 AMB Questionnaire MAYI-7 Date MAYI - 7 assessed: 11/03/24 Feeling nervous, anxious, or on edge: 3 = Nearly every day Not being able to stop or control worryin = More than half the days Worrying too much about different things: 3 = Nearly every day Trouble relaxin = More than half the days Being so restless that it is hard to sit still: 1 = Several days Becoming easily annoyed or irritable: 3 = Nearly every day Feeling afraid as if something awful might happen: 2 = More than half the days Total MAYI-7 score (0-4 normal; 5-9 mild; 10-14 moderate; 15-21 severe): 16 Source: Developed by Drs. Russ Cevallos, Meche Dasilva, Anuel Sweeney and colleagues, with an educational angel luis from [employer]. MAYI-7 Assessment Billing MAYI-7 Assessment Tool: MAYI-7 Assessment 39069 Review of Systems Const Denies body aches, Denies chills, Denies excessive sweating, Denies fatigue, Denies fever(s) and Denies headache(s) Eyes Denies blurry vision ENT Denies dysphagia, Denies vertigo, Denies dizziness, Denies headache(s), Denies hearing loss and Denies tinnitus Card Denies chest pain, Denies chest pain with activity, Denies syncope, Denies irregular heart rhythm and Denies dyspnea Resp Denies chest congestion, Denies cough, Denies hemoptysis, Denies dyspnea and Denies wheezing GI Denies abdominal pain, Denies melena, Denies hematochezia, Denies coffee ground emesis, Denies dysphagia, Denies diarrhea, Denies nausea and Denies vomiting Denies urinary frequency, Denies dysuria, Denies urinary hesitancy and Denies urinary urgency Musc Denies arthralgias, Denies limited range of motion, Denies muscle cramps and Denies muscle weakness Skin/Breast Denies rash and Denies skin ulcer Neuro Denies Abnormal speech present, Denies confusion, Denies vertigo, Denies dizziness, Denies syncope, Denies headache(s), Denies memory loss and Denies seizure-like activity Psych Denies anxiety, Denies confusion, Denies depression, Denies memory loss, Denies panic attacks and Denies paranoia Endo Denies excessive sweating, Denies fatigue, Denies flushing, Denies polydipsia and Denies polyuria Aller/Immun Denies wheezing Physical exam (Primary Care) Vital Signs: Last Vital Signs Temp 97.5 F 11/03/24 15:52 Pulse 80 11/03/24 15:52 BP 114/80 11/03/24 15:52 Pulse Ox 98 11/03/24 15:52 Oxygen Delivery Method Room Air 11/03/24 15:52 BMI result Body Mass Index 34.4 BMI Assessment/Plan discussion: High BMI High, discussed plan: lifestyle, weight reduction, dietary and physical activity Tobacco/Smoking Status: Tobacco use Status Tobacco use date assessed 11/03/24 11/03/24 15:55 Patient Tobacco Use Status Never used Tobacco 11/03/24 16:15 e-Cigarette/Vaping Use Never Used 11/03/24 16:15 PHQ-9: PHQ-9 Score PHQ-9: Total score 16 11/03/24 16:12 Depression Screening Interpretation: Positive Depression Screening Follow-up: Existing condition and In treatment Thrive Assessment: Date of Thrive Assessment Date Thrive assessed 11/03/24 11/03/24 15:55 Currently or been in a relationship where the following occur: I choose not to answer Const General: cooperative, comfortable, no acute distress, alert and awake; No confusion Orientation/consciousness: oriented to person, oriented to place, patient oriented x3 and No confusion HENMT Head: Yes normocephalic Ears: external ears normal and TM's normal bilaterally Face and sinus: No sinus tenderness Mouth: Normal oral and palatal mucosa present and tongue normal Teeth and gingiva: dentition normal and gingiva normal Throat: Yes posterior oropharynx normal, Yes tonsils normal and Yes uvula midline Eyes Conjunctivae: conjunctivae normal Sclerae: sclerae normal Pupils: Equal, round and reactive pupils present EOM: EOMs intact bilaterally Direct Ophthalmoscopy: No no photophobia Neck Neck: Yes no lymphadenopathy, No tender and Yes no JVD Thyroid: Thyroid normal Carotids: no bruits Chest Chest palpation & inspection: no tenderness Resp Effort & Inspection: normal respiratory effort, no audible wheezes, not labored and no stridor Auscultation: no crackles, no rales, no rhonchi and no wheezes Cardio Jugular venous distension: no JVD Rate: regular rate, not bradycardic and not tachycardic Rhythm: regular rhythm Bruits: no carotid bruits Peripheral pulses: Peripheral pulses 2+ throughout GI Inspection: Yes normal to inspection, No abdominal wall ecchymosis and No visible herniation Palpation (GI): Soft to palpation, nontender, no guarding, not rigid and No hepatosplenomegaly present Auscultation: normoactive bowel sounds General: Yes no CVA tenderness Back/Spine/Pelvis Back: no CVA tenderness and No back tenderness Cervical Spine: cervical ROM normal Thoracic/Lumbar Spine: thoracic and lumbar spine normal to inspection, straight leg raise negative bilaterally, No thoraco-lumbar ROM limited and No lumbar spinal tenderness Skin Lesions: no lesions Rashes: no rashes Wounds: no wounds Neuro General: oriented to person, oriented to place, patient oriented x3, CN's II-XI intact bilaterally and No confusion Cranial nerves: Yes Equal, round and reactive pupils present and Yes Normal accommodation reflex present Cognition (Neuro): normal cognition Speech: No Abnormal speech present Gait exam (Neuro): Normal gait present Motor exam (neuro): 5/5 motor strength present throughout Extrem Right upper extremity: full ROM; no cyanosis Left upper extremity: full ROM; no cyanosis Right lower extremity: no edema Left lower extremity: no edema Knee images: 1. PAIN REPORTED IN THE ENTIRE BACKSIDE OF THE KNEE, HAS A FULLNESS IN THE BACK OF THE KNEE CONCERNING FOR MINOR CYST. Psych Appearance: grossly normal Mental Status: mental status grossly normal Affect: normal affect Attitude: cooperative Thought process: Normal thought process present Coding Level of Care Code Est Pt Prev Care 40-64y(56380) Diagnoses Annual physical exam Z00.00 Acute meniscal tear of left knee, initial encounter S83.207A Encounter type: initial encounter PVD (peripheral vascular disease) with claudication I73.9 Encounter for screening mammogram for malignant neoplasm of breast Z12.31 Breast cancer screening modality: mammogram Lumbar radiculopathy M54.16 MDD (major depressive disorder), recurrent episode, moderate F33.1 MAYI (generalized anxiety disorder) F41.1 Additional Codes MAYI-7 Assessment Billing - MAYI-7 Assessment Tool: MAYI-7 Assessment 79183 ([id number]) PHQ-9 - 20055 - PHQ-9 Billing: Yes ([id number]) Assessment & Plan Assessment & Plan (1) Annual physical exam: Code(s): Z00.00 - Encounter for general adult medical examination without abnormal findings Category: Medical Plan: As per HPI (2) Acute meniscal tear of left knee: Code(s): S83.207A - Unspecified tear of unspecified meniscus, current injury, left knee, initial encounter Category: Medical Qualifiers: Encounter type: initial encounter Qualified Code(s): S83.207A - Unspecified tear of unspecified meniscus, current injury, left knee, initial encounter Plan: As per HPI patient has been experiencing burning quality type pain and heavy left lower extremity ventricular in the posterior aspect of the left knee. She denies any trauma to the left knee. She has gotten x-rays which were normal. Will try for MRI to evaluate for meniscal tear (3) PVD (peripheral vascular disease) with claudication: Code(s): I73.9 - Peripheral vascular disease, unspecified Category: Medical Plan: As per HPI patient does have history of peripheral vascular disease. She had has been having lower extremity burning quality pain, sensation of heaviness. Advised to reach out to her vascular surgeon for evaluation. (4) Breast cancer screening: Code(s): Z12.39 - Encounter for other screening for malignant neoplasm of breast Category: Medical Qualifiers: Breast cancer screening modality: mammogram Qualified Code(s): Z12.31 - Encounter for screening mammogram for malignant neoplasm of breast Plan: She is willing to get mammogram (5) Lumbar radiculopathy: Code(s): M54.16 - Radiculopathy, lumbar region Category: Medical Plan: Will send for x-ray of her lower back to evaluate for any disc height loss that could be causing her lower extremity pain. (6) MDD (major depressive disorder), recurrent episode, moderate: Code(s): F33.1 - Major depressive disorder, recurrent, moderate Category: Medical Plan: Patient's PHQ-9 score positive for depression which has been existing condition for she is speaking with a mental health therapist. She continues with medication. She has been having trouble sleeping does use his zolpidem on a as needed basis (7) MAYI (generalized anxiety disorder): Code(s): F41.1 - Generalized anxiety disorder Category: Medical Plan: Patient's MAYI-7 score positive for anxiety which has been existing condition for her. Again do continues with multiple mental health medications with decent affect. Orders: Orders Comprehensive [place]. Panel Fast 11/03/24 Z13.1 - Encounter for screening for diabetes mellitus MR knee LT wo con 11/05/24 S83.207A - Unspecified tear of unspecified meniscus, current injury, left knee, initial encounter US venous duplex LE BI 11/03/24 I73.9 - Peripheral vascular disease, unspecified MM screening mammo BI 11/03/24 Z12.31 - Encounter for screening mammogram for malignant neoplasm of breast Referrals Vascular Surgery Referral I73.9 - Peripheral vascular disease, unspecified, R29.898 - Other symptoms and signs involving the musculoskeletal system Medications: New gabapentin 100 mg PO BID 15 days 30 caps 0RF M54.16 - Radiculopathy, lumbar region Discontinued methylprednisolone Discontinued Reason: Doctor's Order PO PER PKG DIR for 6 days 21 ea 0RF
== END 2024-11-03 16:43 | disposition home or self-care (01) ==
PROVIDERS: PCP Physician Assistant; Visit Provider Physician Assistant
DX: Z00.00 Encounter for general adult medical examination without abnormal findings (principal); S83.207A Unspecified tear of unspecified meniscus, current injury, left knee, initial encounter; I73.9 Peripheral vascular disease, unspecified; F33.1 Major depressive disorder, recurrent, moderate; Z12.31 Encounter for screening mammogram for malignant neoplasm of breast; M54.16 Radiculopathy, lumbar region; F41.1 Generalized anxiety disorder

== ENCOUNTER → 2024-11-03 15:43 | Outpatient (BNVA) | payer OTHER, SELFPAY | PROVIDERS: PCP Physician Assistant; Visit Provider Physician Assistant | DX: Z00.00 Encounter for general adult medical examination without abnormal findings (principal); S83.207D Unspecified tear of unspecified meniscus, current injury, left knee, subsequent encounter; I73.9 Peripheral vascular disease, unspecified; M54.16 Radiculopathy, lumbar region; F41.1 Generalized anxiety disorder; F33.1 Major depressive disorder, recurrent, moderate | CPT/HCPCS: 96127; 99396 ==

== ENCOUNTER 2024-11-05 19:26 | Outpatient (REF) | payer OTHER, SELFPAY ==
--- NOTE | ~2024-11-05 | MR_ITS ---
CLINICAL HISTORY: S83.207A - Unspecified tear of unspecified meniscus, current injury, lef... MR left knee without gadolinium Comparison: CR/SR - XR KNEE LT 4V - 10/11/24 11:08 EST Findings: No fractures. No pathologic bone lesions. No joint effusion. Trace Barrios's cyst. Anterior and posterior cruciate ligaments are intact. Collateral ligaments are intact. Patellar retinacula and iliotibial band are intact. Quadriceps, patellar, popliteus, and flexor tendons are intact. There is mild T2 signal elevation within the quadriceps and patellar tendons at the patellar insertion sites. The menisci are intact. IMPRESSION: 1. No internal derangement. 2. Mild quadriceps and patellar tendinopathy. This document has been electronically signed by: Pk Nagel MD on 11/08/2024 14:59:38
== END 2024-11-05 19:27 | disposition home or self-care (01) ==
LOC: HO.MRI 19:26
PROVIDERS: Visit Provider Physician Assistant
DX: S83.207A Unspecified tear of unspecified meniscus, current injury, left knee, initial encounter (principal)
CPT/HCPCS: 73721

== ENCOUNTER → 2024-11-05 19:34 | Outpatient (BNV) | payer OTHER, SELFPAY | PROVIDERS: Visit Provider Radiology Diagnostic Radiology | DX: S83.207A Unspecified tear of unspecified meniscus, current injury, left knee, initial encounter (principal); M76.52 Patellar tendinitis, left knee | CPT/HCPCS: 73721 ==

== ENCOUNTER 2024-11-25 08:59 | Outpatient (AMB) | payer OTHER, SELFPAY ==
--- NOTE | 2024-11-25 09:05 | MHC.OFFVIS ---
Intake Visit Reasons: PRN follow up for PVD Left LE Intake Note: Patient presents for left LE pain. Leg locks up, much more painful at night. Has some swelling and cramping. In toes as well. Patient has been told she does not have arthritis. Right leg also hurts but left leg is worse. Accompanied by: Self / Same As Patient Allergies hydroxyzine [HYDROXYZINE] Allergy (Unknown, Verified 11/25/24 09:07) HIVES trazodone Adverse Reaction (Intermediate, Verified 11/25/24 09:07) Hallucinations bees Allergy (Unknown, Uncoded 11/03/24 16:11) cellulitis of large surrounding area HPI HPI PRN follow up for PVD Left LE: Details: The patient is a 44-year-old female presenting with persistent leg pain and had prior treatment for venous insufficiency. She had an ablation procedure for venous issues in October 2023. The pain predominantly affects the left leg, particularly the left popliteal area and extends down the leg. It worsens at night and with prolonged sitting, partially alleviated by pressure from a heated blanket. While it resembles a nerve pain pattern, this has impacted her mobility, especially with stairs. Gabapentin, previously prescribed, has been ineffective in providing relief. Unfortunately she has only used gabapentin on an intermittent basis. She now presents to us for re-evaluation regarding her lower extremities. [facility] Medical History TMJ (dislocation of temporomandibular joint) Chronic idiopathic constipation Anxiety Insomnia Surgical History History of section History of wisdom tooth extraction History of tubal ligation Family History Father No problems noted. Mother No problems noted. 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 Cognitive needs: No Hearing needs: No Vision needs: No Review of Systems Const All systems reviewed & are unremarkable except as noted in HPI and below Reports no additional complaints ENT Reports Normal hearing present Card Denies chest pain, Denies chest pain at rest, Denies chest pain with activity and Denies pedal edema Resp Denies cough GI Denies abdominal pain Musc Denies abnormal gait, Denies muscle cramps and Denies radiating pain into limb Skin/Breast Denies skin ulcer and Denies wounds Neuro Reports Normal hearing present and Denies abnormal gait Psych Reports no additional complaints Physical Exam Const General: cooperative, healthy appearing and comfortable Orientation/consciousness: oriented to person, oriented to place and oriented to time HEENT Head: Yes normal to inspection Neck Neck: Yes normal visual inspection Carotids: no bruits Chest Chest palpation & inspection: normal inspection of the chest Resp Effort & Inspection: normal respiratory effort and able to speak in complete sentences Auscultation: clear to auscultation bilaterally, no crackles, no rales, no rhonchi and no wheezes Cardio Rate: regular rate Rhythm: regular rhythm Heart sounds: S1 normal heart sound present and S2 normal heart sound present Bruits: no carotid bruits Peripheral pulses: Peripheral pulses 2+ throughout GI Inspection: Yes normal to inspection Skin Wounds: no wounds Hair: normal Neuro General: oriented to person, oriented to place and oriented to time Cranial nerves: Yes CN's II-XII intact bilaterally and Yes Normal hearing present Cognition (Neuro): normal cognition Motor exam (neuro): 5/5 motor strength present throughout Extrem Other: venous exam: No significant superficial varicosities or spider telangiectasias, minimal edema General: No clubbing, No cyanosis and No edema Psych Appearance: grossly normal Mental Status: mental status grossly normal Speech and movement: Normal speech and movement present Assessment & Plan Assessment & Plan (1) Varicose veins of left lower extremity with inflammation: Comment: 06/29/2021 left great saphenous vein Cyanoacralate ablation 10/17/2023 - left small saphenous vein radiofrequency ablation Code(s): I83.12 - Varicose veins of left lower extremity with inflammation Category: Medical Plan: In short patient has prior history of venous insufficiency. I have taken the liberty of reordering venous insufficiency testing since her last testing was back in 2021. We did discuss routine conservative measures including compression elevation and exercise. The concern is that there may be underlying nerve type issues that may need to be addressed. She will follow up with us on an as-needed basis. (2) PVD (peripheral vascular disease) with claudication: Code(s): I73.9 - Peripheral vascular disease, unspecified Category: Medical Plan: This does not seem to be an issue as she does not have any risk factors and does have palpable dorsalis pedis pulses bilaterally. We will re- workup her venous disease. Thank you for allowing us to assist in her care. Orders: Orders US venous duplex LE BI 1 Week I83.11 - Varicose veins of right lower extremity with inflammation Coding Level of Care Code Est Pt Level 4 (41517) Diagnoses Varicose veins of left lower extremity with inflammation I83.12 PVD (peripheral vascular disease) with claudication I73.9
== END 2024-11-25 09:46 | disposition home or self-care (01) ==
LOC: HO.HVS 09:00
PROVIDERS: PCP Physician Assistant; Visit Provider Surgery Vascular Surgery
DX: I83.12 Varicose veins of left lower extremity with inflammation (principal); I73.9 Peripheral vascular disease, unspecified
CPT/HCPCS: 99214

== ENCOUNTER → 2024-11-25 08:59 | Outpatient (BNVA) | payer OTHER, SELFPAY | PROVIDERS: PCP Physician Assistant; Visit Provider Surgery Vascular Surgery | DX: I83.12 Varicose veins of left lower extremity with inflammation (principal); I73.9 Peripheral vascular disease, unspecified | CPT/HCPCS: 99212 ==

== ENCOUNTER 2024-12-17 14:10 | Outpatient (REF) | payer BC, SELFPAY ==
--- NOTE | ~2024-12-17 | US_ITS ---
EXAMINATION: Noninvasive assessment of the bilateral lower extremities with ARTERIAL DUPLEX. CLINICAL INFORMATION: Symptoms and signs involving mostly the skeletal system TECHNIQUE: Duplex Doppler techniques with waveform analysis and measurement of velocities in the bilateral common femoral, profunda femoris, superficial femoral, popliteal and tibial arteries were performed. The study was performed only at rest. COMPARISON: None FINDINGS: DIRECT DUPLEX DOPPLER FINDINGS: RIGHT LEG: Common femoral artery: 70 cm/s, phasicity: Triphasic. Profunda femoris artery: 67 cm/s, phasicity: Triphasic. Superficial femoral artery (proximal): 69 cm/s, phasicity: Triphasic. Superficial femoral artery (mid): 70 cm/s, phasicity: Triphasic. Superficial femoral artery (distal): 58 cm/s, phasicity: Triphasic. Popliteal artery: 55 cm/s, phasicity: Triphasic. Posterior tibial artery: 87 cm/s, phasicity: Triphasic. Peroneal artery: 45 cm/s, phasicity: Triphasic. Anterior tibial artery: 32 cm/s, phasicity: Triphasic Dorsalis pedis artery: 80 cm/s, phasicity:Triphasic. LEFT LEG: Common femoral artery: 85 cm/s, phasicity: Triphasic Profunda femoris artery: 60 cm/s, phasicity: Triphasic. Superficial femoral artery (proximal): 84 cm/s, phasicity: Triphasic. Superficial femoral artery (mid): 81 cm/s, phasicity: Triphasic. Superficial femoral artery (distal): 71 cm/s, phasicity: Triphasic. Popliteal artery: 62 cm/s, phasicity: Triphasic. Posterior tibial artery: 93 cm/s, phasicity: Triphasic. Peroneal artery: 63 cm/s, phasicity: Triphasic. Anterior tibial artery: 44 cm/s, phasicity: Triphasic. Dorsalis pedis artery: 76 cm/s, phasicity: Triphasic. US/US arterial duplex LE BI IMPRESSION: Right leg: Normal patency and waveforms. Left leg: Normal patency and waveforms. Electronically signed by: Biju Taylor MD 12/17/2024 03:29 PM EDT
== END 2024-12-17 14:11 | disposition home or self-care (01) ==
LOC: HO.US 14:10
PROVIDERS: PCP Physician Assistant; Visit Provider Physician Assistant
DX: R29.898 Other symptoms and signs involving the musculoskeletal system (principal); I73.9 Peripheral vascular disease, unspecified
CPT/HCPCS: 93925

== ENCOUNTER → 2024-12-17 14:30 | Outpatient (BNV) | payer BC, SELFPAY | PROVIDERS: PCP Physician Assistant; Visit Provider Radiology Diagnostic Radiology | DX: I73.9 Peripheral vascular disease, unspecified (principal) | CPT/HCPCS: 93925 ==

== ENCOUNTER 2024-12-20 08:57 | Outpatient (AMB) | payer BC, SELFPAY ==
[2024-12-20 09:00] VITALS: BP 102/70; PULSE 101; TEMP 36.2; O2SAT 96; BMI 31.2
--- NOTE | 2024-12-20 09:00 | MHC.PC.OV ---
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 Accompanied by: Self / Same As Patient Allergies hydroxyzine [HYDROXYZINE] Allergy (Unknown, Verified 12/20/24 09:11) HIVES trazodone Adverse Reaction (Intermediate, Verified 12/20/24 09:11) Hallucinations bees Allergy (Unknown, Uncoded 12/20/24 09:11) cellulitis of large surrounding area Medication List - Last Reconciled 12/20/24 by Preston Abdullahi PA-C bupropion HCl SR 100 mg PO BID cholecalciferol (vitamin D3) 50 mcg PO DAILY cyclobenzaprine 5 mg PO BEDTIME PRN diclofenac sodium 50 mg PO Q12H PRN docusate sodium 200 mg (2 x 100 mg) PO BEDTIME escitalopram oxalate 20 mg PO DAILY gabapentin 100 mg PO BID 15 days lactulose 20 grams (30 mL) PO DAILY PRN 30 days linaclotide (Linzess) 290 mcg PO QAM meloxicam 15 mg PO DAILY topiramate 100 mg PO DAILY zolpidem 10 mg PO BEDTIME PRN 14 days Tobacco use date assessed: 11/03/24 Dental Screening Dental Screen Date: 11/03/24 HPI discuss Trizepatide HPI Details Patient is a 44-year-old female here today for a follow-up visit.? Patient has a past medical history significant for generalized anxiety disorder, insomnia, chronic neck pain, chronic abdominal discomfort. Concern--> class 1 obesity-- > patient has tried many different weight loss medications though had not been particularly effective including phentermine and Topamax. She has been receiving tirzepatide through an online provider and has been able to lose weight. She now has been eating habits and has been bit more physically active. Now due to cost patient would like to have primary care prescribed medication to see if insurance can help pay for GLP 1. She has observed improved weight reduction, dropping from a BMI of 34 to 31. Despite the weight loss success, she reports adverse effects, notably severe sulfur burps experienced after injections, leading to nausea. Additional concerns include suspected menopausal symptoms, which include cognitive impairments described as brain fog, profound lethargy, and marked lack of energy. These symptoms coexist with irregular menstrual cycles. She is keen on exploring DHEA supplementation to manage these symptoms but understands the requirement for preliminary blood tests. Her sleep quality is significantly impaired, with reports of frequent awakenings and insufficient restful periods contributing to overall fatigue. .. MAYI: Is doing in home therapy with her family . Is using Wellbutrin 100 mg b.i.d. now. Only using Clonazepam on a PRN basis. .. Constipation: Continues to have a lot of trouble with constipation, often goes several days without having a bowel movement. She reports the Linzess at 290 mg is much too powerful and cause his diarrhea. She is willing to try lactulose on a p.r.n. basis [facility] Medical History TMJ (dislocation of temporomandibular joint) Chronic idiopathic constipation Anxiety Insomnia Surgical History History of section History of wisdom tooth extraction History of tubal ligation Family History Father No problems noted. Mother No problems noted. 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 Cognitive needs: No Hearing needs: No Vision needs: No Questionnaire Thrive Questionnaire Date Thrive assessed: 12/20/24 I am a: Patient What is your living situation today?: I choose not to answer this question Within the past 12 months, did the food you bought not last and you didn't have the money to get more?: Often true Within the past 12 months, did you worry whether your food would run out before you got money to buy more?: Often true Do you have trouble paying for medicines?: I choose not to answer this question Do you have trouble getting transportation to medical appointments?: I choose not to answer this question Do you have trouble paying your heating and electricity bill?: Yes Do you have trouble taking care of your child, family member or friend?: No Do you have trouble with day-to-day activities such as bathing, preparing meals, shopping, managing finances, etc.?: No Are you currently unemployed and looking for a job?: No Are you interested in more education?: No Please select the resources that you would like help with: None Currently or been in a relationship where the following occur: I choose not to answer THRIVE Score: 3 MAYI-7 AMB Questionnaire MAYI-7 Date MAYI - 7 assessed: 11/03/24 Source: Developed by Drs. Russ Cevallos, Meche Dasilva, Anuel Sweeney and colleagues, with an educational angel luis from [employer]. Review of Systems Const Denies headache(s) Eyes Denies loss of vision ENT Denies vertigo, Denies dizziness, Denies headache(s) and Denies sore throat Card Denies chest pain, Denies leg edema and Denies lightheadedness Resp Denies cough, Denies hemoptysis and Denies wheezing GI Denies abdominal pain, Denies melena, Denies constipation, Denies diarrhea and Denies vomiting Denies urinary frequency, Denies dysuria and Denies urinary urgency Musc Denies arthralgias, Denies joint swelling, Denies numbness and Denies tingling Neuro Denies Abnormal speech present, Denies behavioral changes, Denies vertigo, Denies dizziness, Denies headache(s), Denies loss of vision, Denies memory loss, Denies numbness and Denies tingling Psych Denies anxiety, Denies behavioral changes, Denies depression, Denies memory loss and Denies panic attacks Carlito/Lymph Denies easy bleeding and Denies easy bruising Aller/Immun Denies wheezing Physical exam (Primary Care) Vital Signs: Oxygen Delivery Method Room Air 12/20/24 09:00 BMI Assessment/Plan discussion: High BMI High, discussed plan: lifestyle, weight reduction, dietary and physical activity Tobacco/Smoking Status: Tobacco use Status Tobacco use date assessed 11/03/24 12/20/24 09:01 Patient Tobacco Use Status Never used Tobacco 12/20/24 09:01 e-Cigarette/Vaping Use Never Used 12/20/24 09:01 Thrive Assessment: Date of Thrive Assessment Date Thrive assessed 11/03/24 12/20/24 09:01 Currently or been in a relationship where the following occur: I choose not to answer Const General: healthy appearing, no acute distress, alert and awake Nutritional Appearance: well nourished Orientation/consciousness: oriented to person, oriented to place and oriented to time HENMT Ears: TM's normal bilaterally General nose exam: Normal nasal mucous membranes and turbinates present Eyes Conjunctivae: conjunctivae normal Sclerae: sclerae normal Pupils: Equal, round and reactive pupils present Neck Neck: Yes no lymphadenopathy and Yes no JVD Thyroid: Thyroid normal Carotids: no bruits Resp Effort & Inspection: normal respiratory effort and not tachypneic Auscultation: no crackles, no rales, no rhonchi and no wheezes Cardio Rate: regular rate Rhythm: regular rhythm Heart sounds: no murmurs and normal S1 and S2 GI Palpation (GI): Soft to palpation, nontender, no hepatomegaly and no splenomegaly Auscultation: normal bowel sounds Skin General skin exam: no rashes or lesions noted and dry skin Neuro General: oriented to person, oriented to place and oriented to time Cranial nerves: Yes Equal, round and reactive pupils present Speech: No Abnormal speech present Gait exam (Neuro): Normal gait present Motor exam (neuro): no tremor noted Extrem Right upper extremity: full ROM Left upper extremity: full ROM Right lower extremity: full ROM; no edema Left lower extremity: full ROM; no edema Psych Mental Status: mental status grossly normal Speech and movement: Normal speech and movement present Affect: normal affect Attitude: cooperative Thought process: Normal thought process present Coding Level of Care Code Est Pt Level 4 (60474) Diagnoses Class 1 obesity E66.811 Fatigue, unspecified type R53.83 Fatigue type: unspecified Assessment & Plan Assessment & Plan (1) Class 1 obesity: Code(s): E66.811 - Obesity, class 1 Category: Medical Plan: Patient's BMI today at 31.2 from 34. She did start to his appetite through a online provider in October of 2024 and has noted it to be effective for weight loss. She has better eating habits and has been a bit more physically active. She is still suffers from chronic fatigue that has been a long-term issue for her. She is now interested in having tirzepatide prescribed by her PCP due to cost constraints. She seems to have benefitted from does appetite treatment as she has been able to lose significant amount of weight over the last 2 months. (2) Fatigue: Code(s): R53.83 - Other fatigue Category: Medical Qualifiers: Fatigue type: unspecified Qualified Code(s): R53.83 - Other fatigue Plan: blood tests were advised to analyze her DHEA levels prior to considering supplementation. I emphasized the importance of monitoring sleep patterns and addressed the option of a sleep study if disturbances persist. We also discussed the significance of performing baseline lab tests, including thyroid function, to identify any underlying causes of fatigue. Orders: Orders DHEA, Unconjugated Today R53.83 - Other fatigue Complete Blood Count no Diff Today R53.83 - Other fatigue DHEA Sulfate Today R53.83 - Other fatigue TSH reflex Free T4 Today R53.83 - Other fatigue IRON PROFILE Today D50.9 - Iron deficiency anemia, unspecified, R53.83 - Other fatigue Vitamin B12 and Folate Today E53.8 - Deficiency of other specified B group vitamins, R53.83 - Other fatigue Vitamin D 25-OH Total Today R53.83 - Other fatigue Medications: New tirzepatide (weight loss) (Zepbound) 7.5 mg (0.5 mL) subcut QWEEK 4 weeks 2 mL 1RF E66.811 - Obesity, class 1
== END 2024-12-20 09:29 | disposition home or self-care (01) ==
LOC: HO.HMCH 08:58
PROVIDERS: PCP Physician Assistant; Visit Provider Physician Assistant
DX: R53.83 Other fatigue (principal); E66.811 Obesity, class 1; Z68.30 Body mass index [BMI] 30.0-30.9, adult

== ENCOUNTER → 2024-12-20 08:57 | Outpatient (BNVA) | payer BC, SELFPAY | PROVIDERS: PCP Physician Assistant; Visit Provider Physician Assistant | DX: Z13.89 Encounter for screening for other disorder (principal) ==

== ENCOUNTER 2024-12-21 16:21 | Outpatient (REF) | payer BC, SELFPAY | END 2024-12-21 16:22 | disposition home or self-care (01) | LOC: HO.MAMMO 16:21 | PROVIDERS: PCP Physician Assistant; Visit Provider Physician Assistant | DX: Z12.31 Encounter for screening mammogram for malignant neoplasm of breast (principal) | CPT/HCPCS: 77063; 77067 ==

== ENCOUNTER → 2024-12-21 16:30 | Outpatient (BNV) | payer BC, SELFPAY | PROVIDERS: PCP Physician Assistant; Visit Provider Internal Medicine | DX: Z12.31 Encounter for screening mammogram for malignant neoplasm of breast (principal) | CPT/HCPCS: 77063; 77067 ==

== ENCOUNTER 2025-02-23 13:27 | Outpatient (AMB) | payer BC, SELFPAY ==
--- NOTE | 2025-02-23 13:35 | AM.OFFWIN_ITS ---
Intake Vital Signs 02/23/25 13:36 Height 5 ft 3 in Weight 155 lb 6 oz BMI 27.5 BP 110/72 Blood Pressure Location Lt brachial Position Sitting Pulse 72 Pulse Source Pulse Oximeter Temp 98.3 F Temp Source Oral Pulse Oximetry (%) 98 Oxygen Delivery Method Room Air Intake Visit Reasons: EP LT ear blockage/pain Intake Note: Patient present with left ear pain times 1 month Patient Tobacco Use Status: Never used Tobacco Is last menstrual period known: Yes Post menopausal: No Patient : No Allergies hydroxyzine (HYDROXYZINE) Allergy (Unknown, Verified 02/23/25 13:41) HIVES trazodone Adverse Reaction (Intermediate, Verified 02/23/25 13:41) Hallucinations bees Allergy (Unknown, Uncoded 12/20/24 09:11) cellulitis of large surrounding area Do you need a note to return to daycare/school/sports/work: No HPI HPI Comments History of Present Illness Details History - The patient is a 44-year-old female pr esenting with left ear pain and blockage x 1 month. - The left ear pain is described as thro bbing and raw, with a sensation of blockage that intermittently resolves and recurs. - The patient reports using a heating pa d and [id number] Sudafed without relief. - She experiences a vibration sensation when speaking and muffled hearing, leading to frequent attempts to unblock the ear manually. - There is no history of fever, sneezing , coughing. - She has experienced runny nose and hea daches - The patient denies a history of season al allergies but has had sinus infections in the past. Physical Exam General: Cooperative, healthy appearing, comfortable and no acute distress Orientation/consciousness: Patient oriented x3 Limitations: No limitations Head: Normal to inspection Ears: Hearing grossly normal, external ears normal, left ear canal dry and slight edema, no infection, TM's normal bilaterally Nose: Normal external nose present, Normal nares present Face and sinus: Normal facial exam Eyes: Appearance normal, both eyes and all related structures Neck: Normal visual inspection, full ROM Respiratory: Normal respiratory effort, able to speak in complete sentences Skin: No rashes or lesions noted Neuro: Patient oriented x3 Extremities: Normal to inspection and Yes no clubbing, cyanosis or edema [facility] Medical History TMJ (dislocation of temporomandibular joint) Chronic idiopathic constipation Anxiety Insomnia Surgical History History of section History of wisdom tooth extraction History of tubal ligation Family History Father No problems noted. Mother No problems noted. 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 - Prescribe prednisone ear drops to alleviate ear canal irritation and dryness. - Recommend Afrin nasal spray for short-term (3 days MAX) relief of ear blockage, with caution regarding potential dependency. - Suggest the use of a daily allergy medication such as Zyrtec to address possible allergic rhinitis. - Advise follow-up if symptoms do not improve within a week, with consideration for oral prednisone or ENT referral if necessary. Patient was informed and verbally consented to the use of an ambient scribe for clinic note documentation during this visit Medications: New hydrocortisone-acetic acid 1-2 % 4 drps otic (ear) left QID 10 mL 0RF Coding Level of Care Code Est Pt Level 3 (29288) Diagnoses Seasonal allergies J30.2
[2025-02-23 13:36] VITALS: BP 110/72; PULSE 72; TEMP 36.8; O2SAT 98; BMI 27.5
--- OUTSIDE RECORDS SUMMARY | 2025-02-23 15:50 | XMS_ITS | Patient Health Record ---
Author Organization [facility] Address [address] [place] [address] Care Team Providers Care Contact Worker Lithography Name Role Phone Wallace CLINE, Nevaeh Primary Care Provider Bubba Stinson Jr Unavailable [phone] Allergies Allergen (clinical drug ingredient) Drug/Non Drug Allergy documented on EMR Reaction Allergy Type Onset Date Status hydroxyzine HydrOXYzine HCl Unknown Drug Allergy Active bees (uncoded) Unknown Allergy Activ e Reason For Referral No Information Medications Medication SIG (Take, Route, Frequency, Duration) Notes Start Date End Date Status Ibuprofen 600 MG 1 tablet Orally prn Active oxyCODONE HCl 5 MG 1 tablet Orally ever y 6 hrs Active FLUoxetine HCl 20 MG 1 capsule in the mo rning Orally Once a day Active Cyclobenzaprine HCl 10 MG 1 tablet Orally PRN Active clonazePAM 1 MG 1 tablet Orally once a day Active Augmentin Active Sennosides Active Dicyclomine HCl 20 MG 1 tablet Orally 2- 4 times a day Active Macrobid once a day Active Problems Problem Type SNOMED Code ICD Code Onset Dates Problem Status W/U Status Risk Notes Problem [id number] Right upper quadrant pain (R10.11) Active confirmed Plan Of Treatment Future Test Test Name Order Date COLONOSCOPY 12/16/2014 Insurance Providers Payer Name Payer Address Payer Phone Subscriber Number Group Number Insured Name Patient Relationship to Insured Coverage Start Date Coverage End Date [employer] [address] [place] [phone] [id number] TAMARA CASANOVA Self - patient is the insured Medical (General) History Medical History History ICD Code anxiety TMJ dysfunction headaches neck pain Denies CT,DM,CVA,Lung disease,renal dise ase asthma Surgical History Surgery Date(Month/Year) section X4 wisdom teeth extraction tubal ligation
== END 2025-02-23 14:24 | disposition home or self-care (01) ==
PROVIDERS: PCP Physician Assistant; Visit Provider Physician Assistant
DX: J30.2 Other seasonal allergic rhinitis (principal)

== ENCOUNTER → 2025-02-23 13:27 | Outpatient (BNVA) | payer BC, SELFPAY | PROVIDERS: PCP Physician Assistant; Visit Provider Physician Assistant | DX: Z13.89 Encounter for screening for other disorder (principal) ==

== ENCOUNTER 2025-05-26 11:39 | Outpatient (AMB) | payer OTHER, SELFPAY ==
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
[2025-05-26 11:55] VITALS: BP 98/60; PULSE 77; TEMP 36.7; O2SAT 97; BMI 30.1
--- OUTSIDE RECORDS SUMMARY | 2025-05-26 16:32 | XMS_ITS | Patient Health Record ---
Author Organization [facility] Address [address] [place] [address] Care Team Providers Care Orchid Hand Name Role Phone Wallace CLINE, Nevaeh Primary Care Provider Bubba Stinson Jr Unavailable [phone] Allergies Allergen (clinical drug ingredient) Drug/Non Drug [...] Problem Status W/U Status Risk Notes Problem [id number] Right upper quadrant pain (R10.11) Active confirmed Plan Of Treatment Future Test Test Name Order Date COLONOSCOPY 12/16/2014 Insurance Providers Payer Name Payer Address Payer Phone Subscriber Number Group Number Insured Name Patient Relationship to Insured Coverage Start Date Coverage End Date [employer] [address] [place] [phone] [id number] TAMARA CASANOVA Self - patient is the insured Medical (General) History Medical History History ICD Code anxiety TMJ dysfunction headaches neck pain Denies PR,DM,CVA,Lung disease,renal dise ase asthma Surgical History Surgery Date(Month/Year) section X4 wisdom teeth extraction tubal ligation
== END 2025-05-26 12:36 | disposition home or self-care (01) ==
PROVIDERS: PCP Physician Assistant; Visit Provider Nurse Practitioner Family
DX: S40.012A Contusion of left shoulder, initial encounter (principal); S30.0XXA Contusion of lower back and pelvis, initial encounter